=== PATIENT | female | born 1985 | race Caucasian/White ===

== ENCOUNTER 2016-07-10 19:53 | Emergency (ER) | payer MEDICARE, OTHER ==
[2016-07-10 20:03] VITALS: TEMP 98
[2016-07-10 21:06] LABS: Appearance,Urine Clear (Clear); Bilirubin,Urine Negative (Negative); Glucose,Urine (UA) Negative (Negative); Ketones,Urine Negative (Negative); Leukocyte Esterase,Urine Negative (Negative); Nitrite,Urine Negative (Negative); Protein,Urine Negative (Negative); UA Billing (MACRO vs. MICRO) CHEM; Urobilinogen,Urine <2.0 mg/dL (<2.0)
[2016-07-10 21:08] LABS: Basophils # (A) 0.1 k/uL (0-0.2); Basophils % (A) 1 %; CH 31.1; CHCM 35.2; Eosinophils # (A) 0.1 k/uL (0-0.7); Eosinophils % (A) 2 %; HDW 2.34; HGB 12.8 gm/dL (11.4-16.0); Luc # (Auto) 0.23; Luc % (Auto) 3; Lymphocytes # (A) 2.4 k/uL (1.0-4.8); Lymphocytes % (A) 29 %; MCH 30.5 pg (25.0-35.0); MCHC 34.5 g/dL (31.0-37.0); MCV 88.6 fL (80.0-100.0); Mean Platelet Volume 8.4; Monocytes # (A) 0.5 k/uL (0-1.0); Monocytes % (A) 6 %; Neutrophils # (A) 4.9 k/uL (1.3-7.7); Neutrophils % (A) 60 %; RBC 4.18 m/uL (3.80-5.40); RDW 12.1 % (11.5-15.5); WBC 8.2 k/uL (3.8-10.6); WBC (Perox) 8.86
--- NOTE | 2016-07-10 22:07 | ED ---
General Adult HPI - General Chief complaint: Abdominal Pain Stated complaint: rt side pain ( early ) Time Seen by Provider: 07/10/16 20:25 Source: patient, RN notes reviewed Mode of arrival: ambulatory Limitations: no limitations - History of Present Illness Initial comments: Patient is a 31-year-old female with chief complaint of right lower quadrant pain. She states that she's had a cramping pain for the past 3 days. She states that she found she was approximately 2 weeks ago. She denies any vaginal spotting or discharge. She denies any dysuria or hematuria. Patient reports no nausea or vomiting or other areas of abdominal pain. She reports her pain is currently a 410. She denies any history of fever or chills. This is her fourth . Patient denies any complications with pregnacy, she plans to see OBGYN in [place]. - Related Data Home Medications Medication Instructions Recorded Confirmed Divalproex [Depakote] 750 mg PO HS 07/10/16 07/10/16 Folic Acid 1 mg PO DAILY 07/10/16 07/10/16 levETIRAcetam [Keppra] 500 mg PO Q12HR 07/10/16 07/10/16 Previous Rx's Medication Instructions Recorded Yhg-Skbk-Klzun Acid 1 cap PO DAILY #30 cap 07/10/16 [-U Capsule (formulary)] Allergies Allergy/AdvReac Type Severity Reaction Status Date / Time acetaminophen Allergy Mild Itching Verified 07/10/16 20:16 [From Tylenol-Codeine #3] codeine phosphate Allergy Mild Itching Verified 07/10/16 20:16 [From Tylenol-Codeine #3] lorazepam [From Ativan] Allergy Unknown Verified 07/10/16 20:16 tramadol Allergy Anxiety Verified 07/10/16 20:16 Review of Systems ROS Statement: Those systems with pertinent positive or pertinent negative responses have been documented in the HPI. ROS Other: All systems not noted in ROS Statement are negative. Past Medical History Past Medical History: Seizure Disorder Additional Past Medical History / Comment(s): post depression epilepsy History of Any Multi-Drug Resistant Organisms: MRSA Date of last positivie culture/infection: 2012 MDRO Source:: stomach wound Past Surgical History: Adenoidectomy, Orthopedic Surgery Additional Past Surgical History / Comment(s): brain surgery, eye surgery Past Psychological History: Depression Smoking Status: Never smoker Past Alcohol Use History: None Reported Past Drug Use History: None Reported General Exam Limitations: no limitations General appearance: alert, in no apparent distress Head exam: Present: atraumatic, normocephalic, normal inspection Eye exam: Present: normal appearance, PERRL, EOMI. Absent: scleral icterus, conjunctival injection, periorbital swelling ENT exam: Present: normal exam, mucous membranes moist Neck exam: Present: normal inspection. Absent: tenderness, meningismus, lymphadenopathy Respiratory exam: Present: normal lung sounds bilaterally. Absent: respiratory distress, wheezes, rales, rhonchi, stridor Cardiovascular Exam: Present: regular rate, normal rhythm, normal heart sounds. Absent: systolic murmur, diastolic murmur, rubs, gallop, clicks GI/Abdominal exam: Present: soft, normal bowel sounds. Absent: distended, tenderness, guarding, rebound, rigid Extremities exam: Present: normal inspection, full ROM, normal capillary refill. Absent: tenderness, pedal edema, joint swelling, calf tenderness Back exam: Present: normal inspection Neurological exam: Present: alert, oriented X3, CN II-XII intact Psychiatric exam: Present: normal affect, normal mood Skin exam: Present: warm Course Vital Signs 07/10/16 07/10/16 19:58 23:28 Temperature 98.0 F Pulse Rate 84 76 Respiratory 20 16 Rate Blood Pressure 129/62 120/70 O2 Sat by Pulse 100 98 Oximetry Medical Decision Making - Medical Decision Making Patient is a 31-year-old female. She is presenting with 2 days of right lower quadrant abdominal pain. Labwork obtained, no elevated WBC. Serum norah hcg 112, 450, and patient is O Positive. Patient transvaginal US shows live IUP measuring 8 weeks, no signs of demise. MARIANA 01/19/2017. I discussed that the cramping is likely a normal variant in early and discussed follow up with OBGYN. I discussed return parameters and to use tyelnol for pain. Patient agrees. Patient understands treatment plan and will comply. - Lab Data Result diagrams: 07/10/16 20:55 Lab Results 07/10/16 07/10/16 07/10/16 Range/Units 20:55 20:55 20:55 WBC 8.2 (3.8-10.6) k/uL RBC 4.18 (3.80-5.40) m/uL Hgb 12.8 (11.4-16.0) gm/dL Hct 37.0 (34.0-46.0) % MCV 88.6 (80.0-100.0) fL MCH 30.5 (25.0-35.0) pg MCHC 34.5 (31.0-37.0) g/dL RDW 12.1 (11.5-15.5) % Plt Count 164 (150-450) k/uL Neutrophils % 60 % Lymphocytes % 29 % Monocytes % 6 % Eosinophils % 2 % Basophils % 1 % Neutrophils # 4.9 (1.3-7.7) k/uL Lymphocytes # 2.4 (1.0-4.8) k/uL Monocytes # 0.5 (0-1.0) k/uL Eosinophils # 0.1 (0-0.7) k/uL Basophils # 0.1 (0-0.2) k/uL HCG, Quant 548122.0 mIU/mL Urine Color Urine Appearance (Clear) Urine pH (5.0-8.0) Ur Specific [place] (1.001-1.035) Urine Protein (Negative) Urine Glucose (UA) (Negative) Urine Ketones (Negative) Urine Blood (Negative) Urine Nitrite (Negative) Urine Bilirubin (Negative) Urine Urobilinogen (<2.0) mg/dL Ur Leukocyte Esterase (Negative) Trichomonas Ag (Rapid) (Negative) Blood Type O Positive Blood Type Recheck No 07/10/16 07/10/16 Range/Units 20:55 22:00 WBC (3.8-10.6) k/uL RBC (3.80-5.40) m/uL Hgb (11.4-16.0) gm/dL Hct (34.0-46.0) % MCV (80.0-100.0) fL MCH (25.0-35.0) pg MCHC (31.0-37.0) g/dL RDW (11.5-15.5) % Plt Count (150-450) k/uL Neutrophils % % Lymphocytes % % Monocytes % % Eosinophils % % Basophils % % Neutrophils # (1.3-7.7) k/uL Lymphocytes # (1.0-4.8) k/uL Monocytes # (0-1.0) k/uL Eosinophils # (0-0.7) k/uL Basophils # (0-0.2) k/uL HCG, Quant mIU/mL Urine Color Yellow Urine Appearance Clear (Clear) Urine pH 6.0 (5.0-8.0) Ur Specific [place] 1.020 (1.001-1.035) Urine Protein Negative (Negative) Urine Glucose (UA) Negative (Negative) Urine Ketones Negative (Negative) Urine Blood Negative (Negative) Urine Nitrite Negative (Negative) Urine Bilirubin Negative (Negative) Urine Urobilinogen <2.0 (<2.0) mg/dL Ur Leukocyte Esterase Negative (Negative) Trichomonas Ag (Rapid) Negative (Negative) Blood Type Blood Type Recheck - Radiology Data Radiology results: report reviewed Transvaginal US shows living IUP measuring 8 weeks, MARIANA 02/15/2017. No signs of ectopic or adnexal abnormalities. Disposition Clinical Impression: Abdominal cramping affecting Disposition: HOME SELF-CARE Condition: Good Instructions: Abdominal Pain in (ED) Additional Instructions: Patient advised to follow up with [facility]. Take Tylenol for the pain. Return to emergency department if any alarming signs or symptoms occur. Prescriptions: Eph-Efvp-Ttgok Acid [-U Capsule (formulary)] 1 cap PO DAILY # 30 cap Referrals: Damien Simpson MD [Primary Care Provider] - 1-2 days Time of Disposition: 23:13
--- NOTE | 2016-07-10 22:57 | US ---
EXAMINATION TYPE: US OB <= 14 wk fetus DATE OF EXAM: 07/10/2016 10:27 PM COMPARISON: NONE CLINICAL HISTORY: pain. EC patient with RLQ pain x 2 days; ; patient stated was taking seizure me dication EXAM PERFORMED: Transabdominal (TA) EXAM MEASUREMENTS: GESTATIONAL AGE / DATING Physician Established: not established Dates by LMP: ( 9 weeks/3 days) EDC: 02/09/2017 Dates by First Scan: today Dates by Current Scan for: ( 8 weeks/4 days) EDC: 02/15/2017 MATERNAL ANATOMY Uterus: 9.4 x 6.6 x 6.0cm Right Ovary: 2.8 x 2.4 x 1.8cm; ovarian cyst = 1.7 x 1.2 x 1.1cm Left Ovary: 2.7 x 3.1 x 2.1cm Post CDS / Adnexa: peristalsing bowel was noted surrounding right ovary Presence of free fluid: no Presence of corpus luteal cyst: not identified by ring of color flow Presence of subchorionic bleed: no GESTATION / SURVEY CRL: 2.0cm (8 weeks/4 days) Yolk Sac (normal less than 6mm): 4.3mm Heart Rate: 175 bpm Rhythm: Normal IUP: Viable IUP Date of LMP: 05/05/2016 Beta HcG (if available): 112,450.0 Single, live, IUP, 8 weeks/4 days, EDC: 02/15/2017; HR 175bpm. IMPRESSION: Ultrasound gestational age is 8 weeks 4 days. I see no complicating process.
[2016-07-10 23:29] VITALS: BP 120/70; PULSE 76; RESP 16
[2016-07-13 09:59] LABS: Chlamydia/GC Source Vaginal
== END 2016-07-10 23:29 | disposition home or self-care (01) ==
LOC: EC 19:53
DX: O26.891 Other specified pregnancy related conditions, first trimester (principal); R10.31 Right lower quadrant pain; O99.351 Diseases of the nervous system complicating pregnancy, first trimester; G40.909 Epilepsy, unspecified, not intractable, without status epilepticus; Z3A.08 8 weeks gestation of pregnancy; Z79.899 Other long term (current) drug therapy; Z88.5 Allergy status to narcotic agent; Z88.6 Allergy status to analgesic agent; Z88.8 Allergy status to other drugs, medicaments and biological substances
CPT/HCPCS: 36415; 76801; 81003; 84702; 85025; 86900; 86901; 87070; 87205; 87491; 87591; 87808; 99284

== ENCOUNTER → 2018-02-22 | Outpatient (CLI) | payer MEDICARE, OTHER ==
--- NOTE | 2018-02-22 11:48 | ECHOS ---
STRESS ECHOCARDIOGRAM DATE OF SERVICE: 02/22/2018 INDICATIONS: Chest pain. MEDICATIONS: BASELINE HEART RATE: 83 BASELINE BLOOD PRESSURE: 101/67 MAXIMUM HEART RATE: 169 MAXIMUM BLOOD PRESSURE: 191/93 85% MPHR: 158 100% MPHR: 186 METS: 9 MAXIMUM STAGE REACHED: II TOTAL EXERCISE TIME: 8 minutes CLINICAL INFORMATION: Baseline EKG shows sinus rhythm with normal axis, normal intervals. Patient exercised on Randy protocol for a total of 8 minutes achieving 9 METs, 90% of predicted maximal heart rate without chest pain or diagnostic ST-segment depression. Baseline echo shows normal left ventricular size, wall motion and systolic function. Postexercise, there is normal hyperdynamic response of all segments of myocardium noted. CONCLUSIONS: 1. Good exercise tolerance. 2. Negative stress test by EKG criteria. 3. Negative stress echo. MMODL / IJN: [id number] /
== END | disposition home or self-care (01) ==
LOC: RADNMMAIN 09:55
PROVIDERS: ATTEND Internal Medicine
DX: R07.9 Chest pain, unspecified (principal)
CPT/HCPCS: 93351

== ENCOUNTER 2018-10-02 15:33 | Emergency (ER) | payer MEDICARE, OTHER ==
[2018-10-02 15:42] VITALS: RESP 18
--- NOTE | 2018-10-02 16:35 | ED ---
Extremity Problem HPI - General Chief complaint: Extremity Problem,Nontraumatic Stated complaint: Shoulder pain Time Seen by Provider: 10/02/18 15:52 Source: patient Mode of arrival: ambulatory Limitations: no limitations - History of Present Illness Initial comments: Patient is a 33-year-old male presents emergency Department with left shoulder pain. Patient reports at chronic left shoulder pain that radiates along the left-sided trapezius. Patient reports working a physically demanding job requires a lot of lifting. Patient reports the pain is constant and dull and is alleviated with rest and exacerbated with movement. Patient reports the pain is worse throughout the week while she is a work and subsides over the weekend because she is not working. Patient denies taking medications alleviated the pain. Patient denies any numbness tingling, nausea, vomiting, headache chest pain or chest tightness. Patient also reports recent increase in urinary frequency but denies urgency, dysuria or obstructive symptoms. Patient denies hematuria, hematochezia or melena. - Related Data Home Medications Medication Instructions Recorded Confirmed No Known Home Medications 10/02/18 10/02/18 Allergies Allergy/AdvReac Type Severity Reaction Status Date / Time acetaminophen Allergy Mild Itching Verified 10/02/18 16:58 [From Tylenol-Codeine #3] codeine phosphate Allergy Mild Itching Verified 10/02/18 16:58 [From Tylenol-Codeine #3] lorazepam [From Ativan] Allergy Unknown Verified 10/02/18 16:58 tramadol Allergy Anxiety Verified 10/02/18 16:58 Review of Systems ROS Statement: Those systems with pertinent positive or pertinent negative responses have been documented in the HPI. ROS Other: All systems not noted in ROS Statement are negative. Past Medical History Past Medical History: Seizure Disorder Additional Past Medical History / Comment(s): borderline personality History of Any Multi-Drug Resistant Organisms: MRSA Date of last positivie culture/infection: 2012 MDRO Source:: stomach wound Past Surgical History: Adenoidectomy, Orthopedic Surgery Additional Past Surgical History / Comment(s): brain surgery, eye surgery Past Psychological History: Depression Smoking Status: Never smoker Past Alcohol Use History: None Reported Past Drug Use History: None Reported General Exam Limitations: no limitations General appearance: alert, in no apparent distress Head exam: Present: atraumatic, normocephalic, normal inspection Eye exam: Present: normal appearance, PERRL, EOMI Pupils: Present: normal accommodation ENT exam: Present: normal exam, mucous membranes moist Neck exam: Present: normal inspection, tenderness (Mild tenderness with neck flexion and right rotation), full ROM. Absent: lymphadenopathy Respiratory exam: Present: normal lung sounds bilaterally Cardiovascular Exam: Present: regular rate, normal rhythm, normal heart sounds Extremities exam: Present: normal inspection, full ROM, tenderness (Tenderness on left shoulder with abduction above 90 and extension. Negative empty can test, negative Samuels) Back exam: Present: normal inspection, full ROM Neurological exam: Present: alert, oriented X3 Psychiatric exam: Present: normal affect, normal mood Skin exam: Present: warm, intact, normal color Course Vital Signs 10/02/18 10/02/18 15:38 17:57 Temperature 98.3 F 98.2 F Pulse Rate 79 80 Respiratory 18 18 Rate Blood Pressure 120/74 119/81 O2 Sat by Pulse 99 100 Oximetry Medical Decision Making - Medical Decision Making Patient is a 33-year-old female presents emergency Department with left shoulder pain. X-ray of the left shoulder is negative for acute dislocation or fracture. UA is negative for UTI. At this point based on physical examination suspect the patient to have muscle strain along trapezius and shoulder due to extraneous physical activity. Patient advised to follow shoulder exercises and follow-up with physical therapy. Patient advised to alternate between Tylenol and ibuprofen for pain control. Patient advised to follow-up with orthopedics as well. Patient advised to return to emergency department if signs worsen. Case discussed with physician. - Lab Data Lab Results 10/02/18 Range/Units 16:20 Urine Color Yellow Urine Appearance Clear (Clear) Urine pH 5.5 (5.0-8.0) Ur Specific [place] 1.026 (1.001-1.035) Urine Protein Trace H (Negative) Urine Glucose (UA) Negative (Negative) Urine Ketones Negative (Negative) Urine Blood Negative (Negative) Urine Nitrite Negative (Negative) Urine Bilirubin Negative (Negative) Urine Urobilinogen <2.0 (<2.0) mg/dL Ur Leukocyte Esterase Trace H (Negative) Urine RBC 1 (0-5) /hpf Urine WBC 6 H (0-5) /hpf Ur Squamous Epith Cells 5 H (0-4) /hpf Urine Mucus Many H (None) /hpf Disposition Clinical Impression: Shoulder pain, left Disposition: HOME SELF-CARE Condition: Stable Instructions (If sedation given, give patient instructions): Exercises for Internal and External Shoulder Rotation (ED), Exercises for Shoulder Abduction and Adduction (ED), Exercise Safety (ED) Additional Instructions: Please alternate between Tylenol and ibuprofen for pain control. Please follow with primary care. Please return to emergency department if symptoms worsen. Is patient prescribed a controlled substance at d/c from ED?: No Referrals: Damien Simpson MD [Primary Care Provider] - 1-2 days Time of Disposition: 17:21
[2018-10-02 16:37] LABS: Appearance,Urine Clear (Clear); Bilirubin,Urine Negative (Negative); Blood,Urine Negative (Negative); Color,Urine Yellow; Glucose,Urine (UA) Negative (Negative); Ketones,Urine Negative (Negative); Leukocyte Esterase,Urine Trace (Negative); Mucus,Urine Many /hpf; Nitrite,Urine Negative (Negative); PH, Urine 5.5 (5.0-8.0); Protein,Urine Trace (Negative); RBC,Urine 1 /hpf (0-5); Specific Gravity,Urine 1.026 (1.001-1.035); Squamous Epithelial Cell,Urine 5 /hpf (0-4); Urobilinogen,Urine <2.0 mg/dL (<2.0); WBC,Urine 6 /hpf (0-5)
--- NOTE | 2018-10-02 16:47 | XR ---
EXAMINATION TYPE: XR shoulder complete LT DATE OF EXAM: 10/02/2018 CLINICAL HISTORY: Left shoulder pain. TECHNIQUE: Three views of the left shoulder are obtained. COMPARISON: Left shoulder x-ray April 01, 2015. FINDINGS: There is no acute fracture/dislocation evident in the left shoulder. The acromioclavicula r and glenohumeral joint spaces appear within normal limits. Distal acromion morphology is unremarka ble. The visualized ribs are intact and unremarkable. IMPRESSION: Unremarkable study. No significant change from prior.
[2018-10-02 17:57] VITALS: BP 119/81; PULSE 80; TEMP 98.2
== END 2018-10-02 17:56 | disposition home or self-care (01) ==
LOC: EC 15:33
DX: M25.512 Pain in left shoulder (principal); Z86.14 Personal history of Methicillin resistant Staphylococcus aureus infection; Z88.6 Allergy status to analgesic agent; Z88.5 Allergy status to narcotic agent; Z88.8 Allergy status to other drugs, medicaments and biological substances
CPT/HCPCS: 81001; 99283

== ENCOUNTER → 2018-10-13 | Outpatient (CLI) | payer OTHER ==
[2018-10-13 10:41] LABS: Appearance,Urine Clear (Clear); Bilirubin,Urine Negative (Negative); Blood,Urine Negative (Negative); Color,Urine Yellow; Glucose,Urine (UA) Negative (Negative); Ketones,Urine Negative (Negative); Leukocyte Esterase,Urine Negative (Negative); Nitrite,Urine Negative (Negative); PH, Urine 5.5 (5.0-8.0); Protein,Urine Negative (Negative); Urobilinogen,Urine <2.0 mg/dL (<2.0)
[2018-10-13 10:46] LABS: HCT 41.6 % (34.0-46.0); HGB 13.6 gm/dL (11.4-16.0); MCH 28.3 pg (25.0-35.0); MCHC 32.7 g/dL (31.0-37.0); MCV 86.6 fL (80.0-100.0); Mean Platelet Volume 7.4; Platelet Count 295 k/uL (150-450); RBC 4.81 m/uL (3.80-5.40); WBC 9.5 k/uL (3.8-10.6)
[2018-10-13 16:39] LABS: ALT 20 U/L (8-44); AST 21 U/L (13-35); African American GFR (CKD) 110.7 (60.0-200.0); Albumin/Globulin Ratio 1.71 (1.60-3.17); Alkaline Phosphatase 68 U/L (41-126); Calcium 9.3 mg/dL (8.7-10.3); Carbon Dioxide 25.2 mmol/L (21.6-31.8); Chloride 108 mmol/L (96-109); Globulin 2.4 g/dL (1.6-3.3); Glucose 88 mg/dL (70-110); Potassium 4.5 mmol/L (3.5-5.5); Sodium 140 mmol/L (135-145); Total Bilirubin 0.4 mg/dL (0.3-1.2); Total Protein 6.5 g/dL (6.2-8.2)
[2018-10-13 16:55] LABS: HCG,Quantitative Serum <2.0 mIU/mL
== END | disposition home or self-care (01) ==
LOC: LABWHC1 10:03
PROVIDERS: ATTEND Internal Medicine
DX: R56.9 Unspecified convulsions (principal); F31.9 Bipolar disorder, unspecified; R35.0 Frequency of micturition
CPT/HCPCS: 36415; 80053; 81003; 84443; 84702; 85027; 87086

== ENCOUNTER 2018-11-10 11:38 | Emergency (ER) | payer OTHER ==
[2018-11-10 11:43] VITALS: BP 105/70; PULSE 87; RESP 20; TEMP 98
--- NOTE | 2018-11-10 13:35 | ED ---
Psych HPI - General Chief Complaint: Psychiatric Symptoms Stated Complaint: EPS eval Time Seen by Provider: 11/10/18 11:45 Source: patient, RN notes reviewed, old records reviewed Mode of arrival: ambulatory - History of Present Illness Initial Comments: This is a 33-year-old female the ER for evaluation of psychiatric illness. Patient is actively cutting himself actively depressed and suicidal thoughts. Patient denying any recent drug or alcohol abuse. MD Complaint: suicidal ideation, feels depressed -: unknown Associated Psychiatric Symptoms: depression, suicidal ideation History of same: Yes Quality: intermittent, getting worse Improves With: none Worsens With: none Associated Symptoms: denies other symptoms Treatments Prior to Arrival: placed on mental health hold If Self Harm: admits thoughts of self harm - Related Data Home Medications Medication Instructions Recorded Confirmed Fluticasone Nasal Nelson [Flonase 1 spr EA NOSTRIL DAILY PRN 11/10/18 11/10/18 Nasal Nelson] Norgestimate-Ethinyl Estradiol 1 tab PO HS 11/10/18 11/10/18 [Sprintec 28 Day Tablet] Sertraline [Zoloft] 50 mg PO HS 11/10/18 11/10/18 Allergies Allergy/AdvReac Type Severity Reaction Status Date / Time acetaminophen Allergy Mild Itching Verified 11/10/18 12:17 [From Tylenol-Codeine #3] codeine phosphate Allergy Mild Itching Verified 11/10/18 12:17 [From Tylenol-Codeine #3] lorazepam [From Ativan] Allergy Unknown Verified 11/10/18 12:17 tramadol AdvReac Anxiety Verified 11/10/18 12:17 Review of Systems ROS Statement: Those systems with pertinent positive or pertinent negative responses have been documented in the HPI. ROS Other: All systems not noted in ROS Statement are negative. Past Medical History Past Medical History: Seizure Disorder Additional Past Medical History / Comment(s): borderline personality History of Any Multi-Drug Resistant Organisms: MRSA Date of last positivie culture/infection: 2012 MDRO Source:: stomach wound Past Surgical History: Adenoidectomy, Orthopedic Surgery Additional Past Surgical History / Comment(s): brain surgery, eye surgery Past Psychological History: Depression Smoking Status: Never smoker Past Alcohol Use History: None Reported Past Drug Use History: None Reported General Exam Limitations: no limitations General appearance: alert, in no apparent distress Head exam: Present: atraumatic, normocephalic, normal inspection Eye exam: Present: normal appearance, PERRL, EOMI. Absent: scleral icterus, conjunctival injection, periorbital swelling ENT exam: Present: normal exam, mucous membranes moist Neck exam: Present: normal inspection. Absent: tenderness, meningismus, lymphadenopathy Respiratory exam: Present: normal lung sounds bilaterally. Absent: respiratory distress, wheezes, rales, rhonchi, stridor Cardiovascular Exam: Present: regular rate, normal rhythm, normal heart sounds. Absent: systolic murmur, diastolic murmur, rubs, gallop, clicks GI/Abdominal exam: Present: soft, normal bowel sounds. Absent: distended, tenderness, guarding, rebound, rigid Extremities exam: Present: normal inspection, full ROM, normal capillary refill. Absent: tenderness, pedal edema, joint swelling, calf tenderness Back exam: Present: normal inspection Neurological exam: Present: alert, oriented X3, CN II-XII intact Psychiatric exam: Present: normal affect, normal mood Skin exam: Present: warm, dry, intact, normal color. Absent: rash Course Vital Signs 11/10/18 11:41 Temperature 98.0 F Pulse Rate 87 Respiratory 20 Rate Blood Pressure 105/70 O2 Sat by Pulse 98 Oximetry - Reevaluation(s) Reevaluation #1: 11/10/18 13:34 Patient's medically clear for psychiatric evaluation Medical Decision Making - Medical Decision Making 33 female the ER for evasive psychiatric treatment. Patient seen evaluated with psychiatry and can be discharged home Disposition Clinical Impression: Depression Disposition: HOME SELF-CARE Condition: Fair Instructions (If sedation given, give patient instructions): Depression (ED) Is patient prescribed a controlled substance at d/c from ED?: No Referrals: Damien Simpson MD [Primary Care Provider] - 1-2 days
== END 2018-11-10 14:16 | disposition home or self-care (01) ==
LOC: EC 11:38
DX: F32.9 Major depressive disorder, single episode, unspecified (principal); R45.851 Suicidal ideations; F60.3 Borderline personality disorder; Z86.14 Personal history of Methicillin resistant Staphylococcus aureus infection; Z79.3 Long term (current) use of hormonal contraceptives; Z79.899 Other long term (current) drug therapy; Z88.5 Allergy status to narcotic agent; Z88.6 Allergy status to analgesic agent; Z88.8 Allergy status to other drugs, medicaments and biological substances
CPT/HCPCS: 82075; 99285

== ENCOUNTER → 2018-12-26 | Outpatient (CLI) | payer OTHER ==
--- NOTE | 2018-12-27 10:42 | NM ---
EXAMINATION TYPE: NM hepatobiliary w CCK DATE OF EXAM: 12/26/2018 COMPARISON: NONE HISTORY: Biliary dyskinesia TECHNIQUE: After the intravenous administration of 5.3 mCi Tc 99m Mebrofenin hepatobiliary scintigrap hy is performed. Immediate images post injection. FINDINGS: There is satisfactory initial accumulation of tracer by the liver. The gallbladder is visualized wit hin 4 minutes. The small bowel activity is noted within 2 minutes. At one hour CCK was administered , patient was injected with 2.2 mcg of Kinevac, and gallbladder ejection fraction is calculated at 97 %, above the upper limit of the normal range. Therefore there is no scintigraphic evidence of cysti c or common bile duct obstruction to suggest acute cholecystitis. IMPRESSION: Possible hyperdynamic gallbladder
== END | disposition home or self-care (01) ==
LOC: RADNMMAIN 14:59
PROVIDERS: ATTEND Surgery
DX: K82.8 Other specified diseases of gallbladder (principal)
CPT/HCPCS: 78227; A9537; J2805

== ENCOUNTER 2019-01-16 06:39 | Day surgery (SDC) | payer OTHER ==
[2019-01-11 15:25] VITALS: BMI 41.5
[~2019-01-16 06:39] MED LIST: DEXAMETHASONE SOD PHOSPHATE 10 MG/ML 1 ML VIAL IV ONE; HEPARIN SODIUM,PORCINE 5,000 UNIT/ML 1 ML VIAL SQ ONE; LIDOCAINE 1% 20 ML VIAL (10MG/ML) FOR IV START INTRADERMA PRN; ONDANSETRON 4 MG/2 ML VIAL IVP ONE; SCOPOLAMINE 1.5MG/72HR PATCH TRANSDERM ONE
[2019-01-16] MEDS: LACTATED RINGERS 1,000 ML IV SCH ×2 (07:15→07:53)
[2019-01-16] MEDS ORDERED: NEOSTIGMINE 1 MG/ML 10 ML VIAL ONE (07:48)
[2019-01-16] MEDS ORDERED: HYDROmorphone (PF) 1 MG/ML ONE (07:48)
[2019-01-16] MEDS ORDERED: fentaNYL (PF) 50 MCG/ML 2 ML AMP ONE (07:48)
[2019-01-16] MEDS ORDERED: GLYCOPYRROLATE 0.2 MG/ML 2 ML VIAL ONE (07:48)
[2019-01-16] MEDS ORDERED: PROPOFOL 10 MG/ML 20 ML VIAL IV ONE (07:48)
[2019-01-16] MEDS ORDERED: SUCCINYLCHOLINE CHLORIDE 100 MG/5 ML SYR IV ONE (07:48)
[2019-01-16] MEDS ORDERED: KETOROLAC 30 MG/ML 1 ML VIAL ONE (07:48)
[2019-01-16] MEDS ORDERED: ROCURONIUM BROMIDE 10 MG/ML 10 ML VIAL IV ONE (07:48)
[2019-01-16] MEDS ORDERED: LIDOCAINE 1% INJ 10MG/ML (20 ML MDV) ONE (07:48)
[2019-01-16] MEDS ORDERED: MIDAZOLAM 2 MG/2 ML VIAL ONE (07:48)
--- NOTE | 2019-01-16 07:57 | P.GSHP ---
History of Present Illness H&P Date: 01/16/19 Chief Complaint: Right upper quadrant pain This a 33-year-old female who presents today for laparoscopic cholecystectomy. Patient's had complaints of right upper quadrant pain. Her HIDA scan shows a hyperdynamic gallbladder consistent with biliary hyperkinesia Past Medical History Past Medical History: GERD/Reflux, Seizure Disorder Additional Past Medical History / Comment(s): abdominal pain,last seizure approx Feb 2014,migraines History of Any Multi-Drug Resistant Organisms: MRSA Date of last positivie culture/infection: 2012 MDRO Source:: stomach wound Past Surgical History: Adenoidectomy, Orthopedic Surgery Additional Past Surgical History / Comment(s): brain surgery tx of seizures, eye surgery Past Anesthesia/Blood Transfusion Reactions: No Reported Reaction Additional Past Anesthesia/Blood Transfusion Reaction / Comment(s): no hx blood transfusion Smoking Status: Former smoker - Past Family History Mother Family Medical History: No Reported History Father Brother(s) Family Medical History: Cancer Additional Family Medical History / Comment(s): bladder Medications and Allergies Home Medications Medication Instructions Recorded Confirmed Type Norgestimate-Ethinyl Estradiol 1 tab PO HS 11/10/18 01/16/19 History [Sprintec 28 Day Tablet] Esomeprazole Magnesium [NexIUM] 20 mg PO QAM 01/11/19 01/16/19 History SUMAtriptan SUCCINATE [Imitrex] 50 mg PO DAILY PRN 01/11/19 01/16/19 History Allergies Allergy/AdvReac Type Severity Reaction Status Date / Time codeine phosphate Allergy Mild Itching Verified 01/16/19 07:19 [From Tylenol-Codeine #3] lorazepam [From Ativan] Allergy agitation Verified 01/16/19 07:19 and doesn't remember tramadol AdvReac paranoid Verified 01/16/19 07:19 Surgical - Exam Vital Signs Temp Pulse Resp BP Pulse Ox 97.8 F 80 16 105/82 98 01/16/19 07:07 01/16/19 07:07 01/16/19 07:07 01/16/19 07:07 01/16/19 07:07 - General well developed, well nourished, no distress - Eyes PERRL - ENT normal pinna - Neck no masses - Respiratory normal expansion - Cardiovascular Rhythm: regular - Abdomen Abdomen: soft, non tender Assessment and Plan Assessment: Right upper quadrant pain Abnormal HIDA scan Laparoscopic cholecystectomy
[2019-01-16] MEDS ORDERED: BUPIVACAINE (PF) 0.25% 30 ML VIAL SQ ONE (08:18)
[2019-01-16 09:02] VITALS: TEMP 96.8
[2019-01-16] MEDS: fentaNYL (PF) 50 MCG/ML 2 ML AMP IV PRN ×2 (09:05→09:25)
[2019-01-16] MEDS ORDERED: HYDROcodone/APAP 5-325MG 1 EACH TAB PO ONE (09:52)
[2019-01-16] MEDS ORDERED: HYDROmorphone 1 MG/ML 1 ML SYRINGE IVP ONE (10:57)
[2019-01-16 11:10] VITALS: BP 111/65; PULSE 68; RESP 16
--- NOTE | 2019-01-20 08:58 | P.OP ---
Date of Procedure: 01/16/19 Preoperative Diagnosis: Cholecystitis Postoperative Diagnosis: Cholecystitis Procedure(s) Performed: Laparoscopic cholecystectomy Anesthesia: MAISHA Surgeon: Orlin aWshington Pathology: other (Gallbladder) Condition: stable Disposition: PACU Description of Procedure: The patient was placed on the operating table. The patient received a general endotracheal tube anesthesia. The patients abdomen was prepped and draped in the usual sterile fashion. Through an infraumbilical stab incision, the fascia of the anterior abdominal wall was grasped with a pair of Kochers and then the Veress needle was placed in the peritoneal cavity. Position of the Veress needle was confirmed with positive drop test. The abdomen was then insufflated. After adequate insufflation, the 10 mm trocar was placed in the peritoneal cavity. Following this the laparoscope was placed in the peritoneal cavity. The patient was placed in the head-up, right side up position and then a 5 mm trocar was placed in the right lateral and right subcostal position under direct visualization. A 8 mm trocar was placed in the epigastric position. The gallbladder was grasped in the fundus and infundibulum. Traction on the gallbladder was placed in the lateral and the cephalad positions. The triangle of Calot was visualized.. The cystic duct was bluntly dissected until the union of the cystic duct and common bile duct was seen. A critical view of safety was achieved. The cystic duct was then divided and sealed with the Harmonic scissors. A PDS Endoloop was then placed throughout the cystic duct stump. The cystic artery divided and sealed with the Harmonic scissors. The gallbladder was then removed from the liver bed using Harmonic scissors. The gallbladder was then extracted through the epigastric port site. Operative field was checked for any bleeding spots and Harmonic scissors was used to coagulate the liver bed. The abdomen was irrigated. The trocars were removed. The skin was closed using interrupted 3-0 Vicryl suture. Dermabond dressing were applied. The patient tolerated the procedure well.
== END 2019-01-16 12:00 | disposition home or self-care (01) ==
LOC: OR 06:39
PROVIDERS: ATTEND Surgery
DX: K81.1 Chronic cholecystitis (principal); K21.9 Gastro-esophageal reflux disease without esophagitis; E66.9 Obesity, unspecified; Z68.41 Body mass index [BMI] 40.0-44.9, adult; G43.909 Migraine, unspecified, not intractable, without status migrainosus; Z86.14 Personal history of Methicillin resistant Staphylococcus aureus infection; Z87.891 Personal history of nicotine dependence; Z79.3 Long term (current) use of hormonal contraceptives; Z79.899 Other long term (current) drug therapy; Z88.5 Allergy status to narcotic agent; Z88.8 Allergy status to other drugs, medicaments and biological substances
CPT/HCPCS: 81025; 88304; 47562; J2250; J1644; J1100; J2710; J0690; J2405; J2001; J3010; J1885; J1170; J0330; J2704

== ENCOUNTER 2019-03-26 19:19 | Emergency (ER) | payer OTHER ==
[2019-03-26 19:22] VITALS: BP 136/86; PULSE 85; RESP 20; TEMP 98
[2019-03-26] MEDS ORDERED: KETOROLAC 30 MG/ML 1 ML VIAL IM STA (19:48)
[2019-03-26] MEDS ORDERED: PROCHLORPERAZINE 10 MG TAB PO STA (19:48)
[2019-03-26] MEDS ORDERED: diphenhydrAMINE 50 MG CAP PO STA (19:48)
--- NOTE | 2019-03-26 20:40 | ED ---
Headache HPI - General Chief Complaint: Headache Stated Complaint: VILLAR Time Seen by Provider: 03/26/19 19:25 Mode of arrival: ambulatory Limitations: no limitations - History of Present Illness Initial Comments: Patient complains of a headache. She has a history of migraine headaches. Nothing makes her headache better or worse this time. Her headache came on gradually. This is not the worse headache of her life. She has no nausea or vomiting or diaphoresis. She has no weakness. She has no lightheadedness or dizziness. She has no neck pain or stiffness. She has no fever or chills. - Related Data Home Medications Medication Instructions Recorded Confirmed Norgestimate-Ethinyl Estradiol 1 tab PO HS 11/10/18 01/16/19 [Sprintec 28 Day Tablet] Esomeprazole Magnesium [NexIUM] 20 mg PO QAM 01/11/19 01/16/19 SUMAtriptan SUCCINATE [Imitrex] 50 mg PO DAILY PRN 01/11/19 01/16/19 Previous Rx's Medication Instructions Recorded Docusate [Colace] 100 mg PO BID #20 capsule 01/16/19 HYDROcodone/APAP 5-325MG [[place] 1 tab PO Q6HR PRN #10 tab 01/16/19 5-325] SUMAtriptan SUCCINATE [Sumatriptan 4 mg SQ DAILY PRN #30 ml 03/26/19 Succinate] Allergies Allergy/AdvReac Type Severity Reaction Status Date / Time codeine phosphate Allergy Mild Itching Verified 03/26/19 19:23 [From Tylenol-Codeine #3] lorazepam [From Ativan] Allergy agitation Verified 03/26/19 19:23 and doesn't remember tramadol AdvReac paranoid Verified 03/26/19 19:23 Review of Systems ROS Statement: Those systems with pertinent positive or pertinent negative responses have been documented in the HPI. ROS Other: All systems not noted in ROS Statement are negative. Past Medical History Past Medical History: GERD/Reflux, Seizure Disorder Additional Past Medical History / Comment(s): abdominal pain,last seizure approx Feb 2014,migraines History of Any Multi-Drug Resistant Organisms: MRSA Date of last positivie culture/infection: 2012 MDRO Source:: stomach wound Past Surgical History: Adenoidectomy, Cholecystectomy, Orthopedic Surgery Additional Past Surgical History / Comment(s): brain surgery tx of seizures, eye surgery Past Anesthesia/Blood Transfusion Reactions: No Reported Reaction Additional Past Anesthesia/Blood Transfusion Reaction / Comment(s): no hx blood transfusion Past Psychological History: Bipolar, Depression Smoking Status: Former smoker Past Alcohol Use History: None Reported Past Drug Use History: None Reported - Past Family History Mother Family Medical History: No Reported History Father Brother(s) Family Medical History: Cancer Additional Family Medical History / Comment(s): bladder General Exam Limitations: no limitations General appearance: alert, in no apparent distress Head exam: Present: atraumatic, normocephalic, normal inspection Eye exam: Present: normal appearance, PERRL, EOMI. Absent: scleral icterus, conjunctival injection, periorbital swelling ENT exam: Present: normal exam, mucous membranes moist Neck exam: Present: normal inspection. Absent: tenderness, meningismus, lymphadenopathy Respiratory exam: Present: normal lung sounds bilaterally. Absent: respiratory distress, wheezes, rales, rhonchi, stridor Cardiovascular Exam: Present: regular rate, normal rhythm, normal heart sounds. Absent: systolic murmur, diastolic murmur, rubs, gallop, clicks GI/Abdominal exam: Present: soft, normal bowel sounds. Absent: distended, tenderness, guarding, rebound, rigid Extremities exam: Present: normal inspection, full ROM, normal capillary refill. Absent: tenderness, pedal edema, joint swelling, calf tenderness Back exam: Present: normal inspection Neurological exam: Present: alert, oriented X3, CN II-XII intact Psychiatric exam: Present: normal affect, normal mood Skin exam: Present: warm, dry, intact, normal color. Absent: rash Course Vital Signs 03/26/19 19:20 Temperature 98 F Pulse Rate 85 Respiratory 20 Rate Blood Pressure 136/86 O2 Sat by Pulse 100 Oximetry Medical Decision Making - Medical Decision Making Patient presents with headache. I gave her IM Toradol, oral Compazine and Benadryl. I will refill her prescription for Imitrex. She feels better. There is no evidence of infectious process, space-occupying lesion or intracranial bleed. She is stable for discharge. Disposition Clinical Impression: Headache Disposition: HOME SELF-CARE Condition: Good Instructions (If sedation given, give patient instructions): Acute Headache (ED) Prescriptions: SUMAtriptan SUCCINATE [Sumatriptan Succinate] 4 mg SQ DAILY PRN #30 ml PRN Reason: Pain Is patient prescribed a controlled substance at d/c from ED?: No Referrals: Damien Simpson MD [Primary Care Provider] - 1-2 days
== END 2019-03-26 20:59 | disposition home or self-care (01) ==
LOC: EC 19:19
DX: R51 Headache (principal); K21.9 Gastro-esophageal reflux disease without esophagitis; Z79.899 Other long term (current) drug therapy; Z79.3 Long term (current) use of hormonal contraceptives; Z88.5 Allergy status to narcotic agent; Z88.6 Allergy status to analgesic agent; Z88.8 Allergy status to other drugs, medicaments and biological substances; Z87.891 Personal history of nicotine dependence
CPT/HCPCS: 99283; 96372; S0183; J1885

== ENCOUNTER 2020-03-18 12:40 | Emergency (ER) | payer OTHER ==
[2020-03-18 13:01] VITALS: BP 118/79; PULSE 87; RESP 18; TEMP 97.9
[2020-03-18] MEDS ORDERED: diphenhydrAMINE 50 MG CAP PO STA (13:19)
[2020-03-18] MEDS ORDERED: ONDANSETRON ODT 4 MG TAB PO STA (13:19)
[2020-03-18] MEDS ORDERED: KETOROLAC 15 MG/ML 1 ML VIAL IM STA (13:19)
--- NOTE | 2020-03-18 13:22 | ED ---
Headache HPI - General Chief Complaint: Headache Stated Complaint: headache Time Seen by Provider: 03/18/20 13:11 Source: RN notes reviewed Mode of arrival: ambulatory Limitations: no limitations - History of Present Illness Initial Comments: 34-year-old female presents emergency from chief complaint of migraine headache. Patient states this is her typical migraine headache. She has migraines around her mental cycle. Patient denies any blurred vision, focal weakness, weakness in extremities. Patient denies any chest pain or shortness breath no fevers chills no neck pain or neck stiffness. She has some photosensitivity. Patient states she's has slight nausea without vomiting. She only takes Imitrex but she is out of her Imitrex. Patient denies any chance . No abdominal pain. - Related Data Home Medications Medication Instructions Recorded Confirmed Norgestimate-Ethinyl Estradiol 1 tab PO HS 11/10/18 01/16/19 [Sprintec 28 Day Tablet] Esomeprazole Magnesium [NexIUM] 20 mg PO QAM 01/11/19 01/16/19 SUMAtriptan succinate [Imitrex] 50 mg PO DAILY PRN 01/11/19 01/16/19 Previous Rx's Medication Instructions Recorded Docusate [Colace] 100 mg PO BID #20 capsule 01/16/19 HYDROcodone/APAP 5-325MG [[place] 1 tab PO Q6HR PRN #10 tab 01/16/19 5-325] SUMAtriptan succinate [Sumatriptan 4 mg SQ DAILY PRN #30 ml 03/26/19 Succinate] SUMAtriptan succinate [Imitrex] 50 mg PO ONCE PRN #10 tablet 03/18/20 Allergies Allergy/AdvReac Type Severity Reaction Status Date / Time codeine phosphate Allergy Mild Itching Verified 03/18/20 13:02 [From Tylenol-Codeine #3] lorazepam [From Ativan] Allergy agitation Verified 03/18/20 13:02 and doesn't remember tramadol AdvReac paranoid Verified 03/18/20 13:02 Review of Systems ROS Statement: Those systems with pertinent positive or pertinent negative responses have been documented in the HPI. ROS Other: All systems not noted in ROS Statement are negative. Past Medical History Past Medical History: GERD/Reflux, Seizure Disorder Additional Past Medical History / Comment(s): abdominal pain,last seizure approx Feb 2014,migraines History of Any Multi-Drug Resistant Organisms: MRSA Date of last positivie culture/infection: 2012 MDRO Source:: stomach wound Past Surgical History: Adenoidectomy, Cholecystectomy, Orthopedic Surgery Additional Past Surgical History / Comment(s): brain surgery tx of seizures, eye surgery Past Anesthesia/Blood Transfusion Reactions: No Reported Reaction Additional Past Anesthesia/Blood Transfusion Reaction / Comment(s): no hx blood transfusion Past Psychological History: Bipolar, Depression Smoking Status: Never smoker Past Alcohol Use History: None Reported Past Drug Use History: None Reported - Past Family History Mother Family Medical History: No Reported History Father Brother(s) Family Medical History: Cancer Additional Family Medical History / Comment(s): bladder General Exam General appearance: alert, in no apparent distress Head exam: Present: atraumatic, normocephalic, normal inspection Eye exam: Present: normal appearance, PERRL, EOMI. Absent: scleral icterus, conjunctival injection, periorbital swelling ENT exam: Present: normal exam, normal oropharynx, mucous membranes moist, TM's normal bilaterally, normal external ear exam Neck exam: Present: normal inspection, full ROM. Absent: tenderness, meningismus, lymphadenopathy Respiratory exam: Present: normal lung sounds bilaterally. Absent: respiratory distress, wheezes, rales, rhonchi, stridor Cardiovascular Exam: Present: regular rate, normal rhythm, normal heart sounds. Absent: systolic murmur, diastolic murmur, rubs, gallop, clicks GI/Abdominal exam: Present: soft, normal bowel sounds. Absent: distended, tenderness, guarding, rebound, rigid Extremities exam: Present: normal inspection, full ROM, normal capillary refill. Absent: tenderness, pedal edema, joint swelling, calf tenderness Neurological exam: Present: alert, oriented X3, CN II-XII intact, reflexes normal, other (Finger to nose intact bilaterally). Absent: motor sensory deficit Skin exam: Present: warm, dry, intact, normal color. Absent: rash Course Vital Signs 03/18/20 12:58 Temperature 97.9 F Pulse Rate 87 Respiratory 18 Rate Blood Pressure 118/79 O2 Sat by Pulse 97 Oximetry Medical Decision Making - Medical Decision Making Patient has chronic migraine with no acute findings today. Patient offers Toradol Benadryl and Zofran patient agrees to plan patient was discharged with a prescription of Imitrex return parameters discussed. She is neurologically intact. Disposition Clinical Impression: Migraine headache Disposition: HOME SELF-CARE Condition: Stable Instructions (If sedation given, give patient instructions): Acute Headache (ED) Additional Instructions: Please return to the Emergency Department if symptoms worsen or any other concerns. Prescriptions: SUMAtriptan succinate [Imitrex] 50 mg PO ONCE PRN #10 tablet PRN Reason: headache Is patient prescribed a controlled substance at d/c from ED?: No Referrals: Damien Simpson MD [Primary Care Provider] - 1-2 days Time of Disposition: 13:22
== END 2020-03-18 14:05 | disposition home or self-care (01) ==
LOC: EC 12:40
DX: G43.909 Migraine, unspecified, not intractable, without status migrainosus (principal); F31.9 Bipolar disorder, unspecified; K21.9 Gastro-esophageal reflux disease without esophagitis; Z79.899 Other long term (current) drug therapy; Z88.5 Allergy status to narcotic agent; Z88.6 Allergy status to analgesic agent; Z88.8 Allergy status to other drugs, medicaments and biological substances; Z86.14 Personal history of Methicillin resistant Staphylococcus aureus infection
CPT/HCPCS: 99283; 96372; J1885

== ENCOUNTER 2020-05-19 00:31 | Emergency (ER) | payer OTHER ==
[2020-05-19 00:38] VITALS: RESP 20; TEMP 97.7
--- NOTE | 2020-05-19 00:57 | ED ---
Arrhythmia/Palpitations HPI - General Chief Complaint: Arrhythmia/Palpitations Stated Complaint: Heart racing, dizziness Time Seen by Provider: 05/19/20 00:39 Source: patient, family Mode of arrival: ambulatory Limitations: no limitations - History of Present Illness Initial Comments: 34 year-old female patient presents to the emergency department today for evaluation of palpitations and dizziness. Patient states that she was sleeping, states she woke from sleep and her heart was racing. States she felt a warm flush go through her body and focus on her abdomen. States she did become nauseated. States she got up to use Vaseline became dizzy and felt like she was going to pass out. States she sat back down and the symptoms continued for approximately 10 minutes of she decided to come in and get checked out. She states she does not have significant medical history. She is treated for bipolar and was just started on a low-dose Lamictal about a week ago. Patient does admit to heavy energy drink use, states she had 3 today while at work between 8 AM and 4 PM. She denies any personal history of cardiac disease. States her grandmother did from a heart attack but at an old age. She denies any alcohol or street drug use. Patient denies any recent rash, fever, chills, cough, shortness of breath, chest pain, abdominal pain, diarrhea, constipation, back pain, numbness, tingling, hematuria, dysuria, urinary urgency, urinary frequency, headache, visual changes, or any other complaints. - Related Data Home Medications Medication Instructions Recorded Confirmed Norgestimate-Ethinyl Estradiol 1 tab PO HS 11/10/18 01/16/19 [Sprintec 28 Day Tablet] Esomeprazole Magnesium [NexIUM] 20 mg PO QAM 01/11/19 01/16/19 SUMAtriptan succinate [Imitrex] 50 mg PO DAILY PRN 01/11/19 01/16/19 Previous Rx's Medication Instructions Recorded Docusate [Colace] 100 mg PO BID #20 capsule 01/16/19 HYDROcodone/APAP 5-325MG [[place] 1 tab PO Q6HR PRN #10 tab 01/16/19 5-325] SUMAtriptan succinate [Sumatriptan 4 mg SQ DAILY PRN #30 ml 03/26/19 Succinate] SUMAtriptan succinate [Imitrex] 50 mg PO ONCE PRN #10 tablet 03/18/20 Allergies Allergy/AdvReac Type Severity Reaction Status Date / Time codeine phosphate Allergy Mild Itching Verified 05/19/20 00:38 [From Tylenol-Codeine #3] lorazepam [From Ativan] Allergy agitation Verified 05/19/20 00:38 and doesn't remember tramadol AdvReac paranoid Verified 05/19/20 00:38 Review of Systems ROS Statement: Those systems with pertinent positive or pertinent negative responses have been documented in the HPI. ROS Other: All systems not noted in ROS Statement are negative. Past Medical History Past Medical History: GERD/Reflux, Seizure Disorder Additional Past Medical History / Comment(s): abdominal pain,last seizure approx Feb 2014,migraines History of Any Multi-Drug Resistant Organisms: MRSA Date of last positivie culture/infection: 2012 MDRO Source:: stomach wound Past Surgical History: Adenoidectomy, Cholecystectomy, Orthopedic Surgery Additional Past Surgical History / Comment(s): brain surgery tx of seizures, eye surgery Past Anesthesia/Blood Transfusion Reactions: No Reported Reaction Additional Past Anesthesia/Blood Transfusion Reaction / Comment(s): no hx blood transfusion Past Psychological History: Anxiety, Bipolar, Depression Smoking Status: Former smoker Past Alcohol Use History: None Reported Past Drug Use History: None Reported - Past Family History Mother Family Medical History: No Reported History Father Brother(s) Family Medical History: Cancer Additional Family Medical History / Comment(s): bladder General Exam Limitations: no limitations General appearance: alert, in no apparent distress, other (this is a well- developed, well-nourished adult female patient in no acute distress.) Eye exam: Present: normal appearance, PERRL, EOMI. Absent: scleral icterus, conjunctival injection, nystagmus, periorbital swelling ENT exam: Present: normal exam, normal oropharynx, mucous membranes moist Respiratory exam: Present: normal lung sounds bilaterally. Absent: respiratory distress, wheezes, rales, rhonchi, stridor Cardiovascular Exam: Present: regular rate, normal rhythm, normal heart sounds. Absent: systolic murmur, diastolic murmur, rubs, gallop, clicks GI/Abdominal exam: Present: soft, normal bowel sounds. Absent: distended, tenderness, guarding, rebound, rigid Neurological exam: Present: alert, oriented X3, CN II-XII intact Psychiatric exam: Present: normal affect, normal mood Skin exam: Present: warm, dry, intact, normal color. Absent: rash Course Vital Signs 05/19/20 05/19/20 05/19/20 00:33 00:59 01:00 Temperature 97.7 F Pulse Rate 73 78 Pulse Rate [ 73 [employer] Ax Consultant ] Respiratory 20 20 Rate Blood Pressure 122/81 123/83 O2 Sat by Pulse 99 100 Oximetry EKG Findings - EKG Comments: EKG Findings:: EKG obtained at 0048 shows normal sinus rhythm with a ventricular rate of 68, DE interval 176, QRS duration 84, QT 412, QTC 438. No evidence of ST elevation or depression. Medical Decision Making - Medical Decision Making 34 maria fernanda-old female patient presented to the emergency department today for evaluation after having an episode of palpitations/racing heart at home. Physical examination was unremarkable. Lungs are clear to auscultation. Upon arrival her heart rate is within the normal range in the 70s. EKG was obtained and showed normal sinus with no ectopy or ST elevation or depression. Vital signs were normal. Patient was ambulated through the department, vital signs were rechecked. She is still symptom free. We did discuss multiple causes for her symptoms. she is instructed to decrease energy drink intake. She'll be discharged up with her primary care physician for recheck on Wednesday, she is urged to discuss Holter monitoring. Return parameters were discussed in detail. She verbalizes understanding and agrees with this plan. Disposition Clinical Impression: Palpitations Disposition: HOME SELF-CARE Condition: Good Instructions (If sedation given, give patient instructions): Heart Palpitations (ED) Additional Instructions: Increase fluids. Decrease intake of energy drinks. Follow up through primary care physician, discuss Holter monitoring. Return to the emergency department for any new, worsening, or concerning symptoms. Is patient prescribed a controlled substance at d/c from ED?: No Referrals: Damien Simpson MD [Primary Care Provider] - 1-2 days Time of Disposition: 01:17
[2020-05-19 01:00] VITALS: BP 123/83
[2020-05-19 01:02] VITALS: PULSE 73
== END 2020-05-19 01:34 | disposition home or self-care (01) ==
LOC: EC 00:31
DX: R00.2 Palpitations (principal); K21.9 Gastro-esophageal reflux disease without esophagitis; G43.909 Migraine, unspecified, not intractable, without status migrainosus; Z79.3 Long term (current) use of hormonal contraceptives; Z79.899 Other long term (current) drug therapy; Z88.5 Allergy status to narcotic agent; Z88.8 Allergy status to other drugs, medicaments and biological substances; Z87.891 Personal history of nicotine dependence
CPT/HCPCS: 93005; 99284

== ENCOUNTER 2020-06-30 01:33 | Emergency (ER) | payer OTHER ==
[2020-06-30 01:53] VITALS: TEMP 98.7
--- NOTE | 2020-06-30 03:37 | ED ---
Arrhythmia/Palpitations HPI - General Chief Complaint: Arrhythmia/Palpitations Stated Complaint: Anxiety, body shaking Time Seen by Provider: 06/30/20 03:09 Source: patient Mode of arrival: ambulatory Limitations: no limitations - History of Present Illness Initial Comments: 's patient is a 34-year-old woman who presents to be evaluated for constellation of symptoms that she woke with tonight. The patient states she had been feeling well when she went to bed. She states she woke with a start and found that her heart was racing, she was feeling shaky and anxious. Patient had never had an episode like this and presented here for evaluation. She states that in the process of coming in here she would has been feeling better and better and now back to her usual state of health. Patient denies chest pain. No diaphoresis, nausea or vomiting. MD Complaint: palpitations -: minutes(s) Context: awoke with symptoms Associated Symptoms: shortness of breath, anxiety, feeling of impending doom, other - Related Data Home Medications Medication Instructions Recorded Confirmed Norgestimate-Ethinyl Estradiol 1 tab PO HS 11/10/18 01/16/19 [Sprintec 28 Day Tablet] Esomeprazole Magnesium [NexIUM] 20 mg PO QAM 01/11/19 01/16/19 SUMAtriptan succinate [Imitrex] 50 mg PO DAILY PRN 01/11/19 01/16/19 Previous Rx's Medication Instructions Recorded Docusate [Colace] 100 mg PO BID #20 capsule 01/16/19 HYDROcodone/APAP 5-325MG [[place] 1 tab PO Q6HR PRN #10 tab 01/16/19 5-325] SUMAtriptan succinate [Sumatriptan 4 mg SQ DAILY PRN #30 ml 03/26/19 Succinate] SUMAtriptan succinate [Imitrex] 50 mg PO ONCE PRN #10 tablet 03/18/20 Allergies Allergy/AdvReac Type Severity Reaction Status Date / Time codeine phosphate Allergy Mild Itching Verified 06/30/20 01:53 [From Tylenol-Codeine #3] lorazepam [From Ativan] Allergy agitation Verified 06/30/20 01:53 and doesn't remember tramadol AdvReac paranoid Verified 06/30/20 01:53 Review of Systems ROS Statement: Those systems with pertinent positive or pertinent negative responses have been documented in the HPI. ROS Other: All systems not noted in ROS Statement are negative. Constitutional: Denies: fever, chills Respiratory: Reports: as per HPI, dyspnea. Denies: cough Cardiovascular: Reports: as per HPI, palpitations. Denies: chest pain, orthopnea, edema, syncope Gastrointestinal: Denies: abdominal pain, nausea, vomiting, diarrhea Genitourinary: Denies: dysuria, hematuria Musculoskeletal: Denies: back pain Skin: Denies: rash Neurological: Denies: headache, weakness, numbness Psychiatric: Reports: as per HPI, anxiety Past Medical History Past Medical History: GERD/Reflux, Seizure Disorder Additional Past Medical History / Comment(s): abdominal pain,last seizure approx Feb 2014,migraines History of Any Multi-Drug Resistant Organisms: MRSA Date of last positivie culture/infection: 2012 MDRO Source:: stomach wound Past Surgical History: Adenoidectomy, Cholecystectomy, Orthopedic Surgery Additional Past Surgical History / Comment(s): brain surgery tx of seizures, eye surgery Past Anesthesia/Blood Transfusion Reactions: No Reported Reaction Additional Past Anesthesia/Blood Transfusion Reaction / Comment(s): no hx blood transfusion Past Psychological History: Anxiety, Bipolar, Depression Smoking Status: Former smoker Past Alcohol Use History: None Reported Past Drug Use History: None Reported - Past Family History Mother Family Medical History: No Reported History Father Brother(s) Family Medical History: Cancer Additional Family Medical History / Comment(s): bladder General Exam Limitations: no limitations General appearance: alert, in no apparent distress Head exam: Present: atraumatic, normocephalic Eye exam: Present: normal appearance. Absent: scleral icterus, conjunctival injection ENT exam: Present: normal oropharynx Neck exam: Present: normal inspection Respiratory exam: Present: normal lung sounds bilaterally. Absent: respiratory distress, wheezes, rales, rhonchi, stridor Cardiovascular Exam: Present: regular rate, normal rhythm, normal heart sounds. Absent: systolic murmur, diastolic murmur, rubs, gallop GI/Abdominal exam: Present: soft. Absent: distended, tenderness, guarding, rebound, rigid, mass Extremities exam: Present: normal inspection, normal capillary refill. Absent: pedal edema, calf tenderness Back exam: Present: normal inspection Neurological exam: Present: alert Skin exam: Present: warm, dry, intact, normal color. Absent: rash Course Vital Signs 06/30/20 01:49 Temperature 98.7 F Pulse Rate 84 Respiratory 20 Rate Blood Pressure 118/79 O2 Sat by Pulse 98 Oximetry EKG Findings - EKG Results: EKG: interpreted by FAITH LEMUS, sinus rhythm (Rate 78 bpm), normal axis, normal QRS, normal ST/T, no acute changes Medical Decision Making - Medical Decision Making Patient is a 34-year-old woman presenting with symptoms consistent with episode of sleep apnea. Her symptoms have resolved. She appears well on exam and ECG and chest x-ray unremarkable. I discussed appropriate further care and follow- up as well as return parameters. - Lab Data Lab Results 06/30/20 Range/Units 03:31 Urine HCG, Qual Not Detected (Not Detectd) Disposition Clinical Impression: Sleep apnea Disposition: HOME SELF-CARE Condition: Good Instructions (If sedation given, give patient instructions): Sleep Apnea (DC) Is patient prescribed a controlled substance at d/c from ED?: No Referrals: Damien Simpson MD [Primary Care Provider] - 1-2 days
--- NOTE | 2020-06-30 04:47 | XR ---
EXAM: XR Chest, 2 Views CLINICAL HISTORY: ITS.REASON XR Reason: dyspnea TECHNIQUE: Frontal and lateral views of the chest. COMPARISON: No relevant prior studies available. FINDINGS: Lungs: No consolidation or mass. Pleural space: No effusion. Heart: No cardiomegaly. Bones/joints: No acute findings. IMPRESSION: No acute cardiopulmonary process.
[2020-06-30 05:17] VITALS: BP 100/60; PULSE 78; RESP 18
== END 2020-06-30 05:16 | disposition home or self-care (01) ==
LOC: EC 01:33
DX: G47.30 Sleep apnea, unspecified (principal); R00.2 Palpitations; K21.9 Gastro-esophageal reflux disease without esophagitis; Z79.899 Other long term (current) drug therapy; Z88.5 Allergy status to narcotic agent; Z88.6 Allergy status to analgesic agent; Z88.8 Allergy status to other drugs, medicaments and biological substances; Z86.14 Personal history of Methicillin resistant Staphylococcus aureus infection; Z87.891 Personal history of nicotine dependence; Z90.89 Acquired absence of other organs; Z90.49 Acquired absence of other specified parts of digestive tract
CPT/HCPCS: 71046; 81025; 93005; 99285

== ENCOUNTER → 2020-07-18 | Outpatient (CLI) | payer OTHER ==
--- NOTE | 2020-07-18 17:15 | CONS ---
CONSULTATION DATE OF SERVICE: 07/18/2020. 35-year-old lady has been evaluated in the sleep center for possible obstructive sleep apnea-hypopnea syndrome. HISTORY OF PRESENT ILLNESS SLEEP WAKE EVALUATION: SLEEP SCHEDULE: Patient usual sleep schedule on weekdays from 9 or 10 p.m. to 6 or 6:30 a.m. on weekends from 10 p.m. until 7 or 8 a.m. FALLING ASLEEP: Sometimes she has problems with falling asleep. He has TV set in bedroom. DURING SLEEP: Usually sleeps on the back or side position. She snores, but not very loudly according to patient, and she wakes up from sleep with episodes of gasping for air and palpitations. For the night, she wakes up to 7 times with 2 episodes of nocturia. DURING THE DAY/SLEEP WAKE EVALUATION: In the morning, patient wakes up tired, has problems with memory, concentration, irritability, depression and anxiety. [place] Sleepiness Scale is 7. PAST MEDICAL HISTORY: Positive for epilepsy, migraines in the morning after awakenings, acid reflux. PAST SURGICAL HISTORY: Brain surgery for epilepsy in 2004, cholecystectomy, adenoidectomy. MEDICATIONS: Lamictal once a day, pantoprazole once a day. SOCIAL HISTORY: Positive for smoking; quit in 2013. Alcohol consumption occasional. FAMILY HISTORY: Liver problems and thyroid problems, hypertension, asthma, fibromyalgia. REVIEW OF SYSTEMS: Multiple awakenings from sleep, awakenings with gasping for air and palpitation. PHYSICAL EXAMINATION: GENERAL: A lady without distress. BP 124/66, HR 81, RR 15, height 5 feet 6 inches, weight 259 pounds, BMI 41.8, temperature 97.2, oxygen saturation at room air 98%. HEENT: PERRLA, EOMI. Oropharynx low position of soft palate. Mallampati 3. Tonsils enlarged. NECK: Supple, no JVD. Thyroid is not palpable. LUNGS: Clear to percussion and to auscultation. Good air exchange. No wheezing or rhonchi. HEART: S1, S2 regular. No murmurs, gallops, or rubs. ABDOMEN: Obese. Soft and nontender. Bowel sounds are present. No organomegaly appreciated. EXTREMITIES: No clubbing or cyanosis. 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 Cranial nerves 2 to 7 intact. There is no fasciculation or atrophy. noted. No focal deficits observed. IMPRESSION: 1. Snoring, multiple awakenings from sleep up to 7 times with 2 episodes of nocturia. Low position of soft palate, enlarged tonsils, wide neck 17 inches in circumference, episodes of sleepiness during the day. The patient takes naps around 11 am, obstructive sleep apnea-hypopnea syndrome. 2. Obesity, BMI 41.8. 3. Bipolar disorder. 4. History of epilepsy status post brain surgery for epilepsy. 5. Acid reflux. 6. Episodes of migraine started in the morning, possibly secondary to obstructive sleep apnea. 7. Status post cholecystectomy. 8. Status post adenoidectomy. PLAN: 1. Polysomnography for evaluation of patient's breathing during sleep. 2. CPAP/BiPAP titration if sleep study confirms obstructive sleep apnea-hypopnea syndrome. 3. Preferable position during sleep on the side. 4. No driving if patient feels any sleepiness. 5. I will see patient for follow up visit to explain results of testing and following plan. Thank you very much for referring this patient for consultation. Sincerely, Juancarlos Cunha MD, PhD, FAASM Diplomat of [place] [employer] [place] [employer] [facility] [place] MMODL / IJN: [id number] /
== END ==
LOC: SLEEP 14:11
PROVIDERS: ATTEND Internal Medicine Critical Care Medicine
DX: G47.33 Obstructive sleep apnea (adult) (pediatric) (principal); E66.9 Obesity, unspecified; Z68.41 Body mass index [BMI] 40.0-44.9, adult; F31.9 Bipolar disorder, unspecified; G40.909 Epilepsy, unspecified, not intractable, without status epilepticus; K21.9 Gastro-esophageal reflux disease without esophagitis; G43.909 Migraine, unspecified, not intractable, without status migrainosus; Z87.891 Personal history of nicotine dependence; Z90.49 Acquired absence of other specified parts of digestive tract; Z98.890 Other specified postprocedural states
CPT/HCPCS: 99211

== ENCOUNTER 2020-08-31 00:11 | Emergency (ER) | payer OTHER ==
[2020-08-31 00:16] VITALS: TEMP 97.6
[2020-08-31] MEDS ORDERED: ASPIRIN 81 MG PO STA (00:35)
--- NOTE | 2020-08-31 00:41 | ED ---
Dizziness HPI - General Chief Complaint: Dizziness Stated Complaint: Chest Pain Time Seen by Provider: 08/31/20 00:27 Source: patient Mode of arrival: ambulatory Limitations: no limitations - History of Present Illness Initial Comments: 35-year-old female, former smoker presenting to the ER today for cc of chest discomfort. pt states approximately 40 minutes ago she was at home when she felt her heart race a little, then a pressure/some indigestion. pt states that it worried her and thus she drove to the ER. PT states it is starting to feel better. She dneies any specific alleviating or aggrevating factors. Pt denies shortness of breath hemoptysis leg swelling history DVT pulmonary embolism, history of cancer or recent surgeries she denies exogenous hormone use, or immobilization. Patient denies sharp pain, back pain, abdominal pain or pain wtih a deep breath. Pt denies family history of CAD at a young age, states maybe her grandmother has a NH "when she was old" otherwise no noted familial history. Pt dneies DM, HTN.Patient is obese. Pt has no additional complaints or concerns on arrival she appears well nontoxic in no acute di stress. - Related Data Home Medications Medication Instructions Recorded Confirmed Norgestimate-Ethinyl Estradiol 1 tab PO HS 11/10/18 01/16/19 [Sprintec 28 Day Tablet] Esomeprazole Magnesium [NexIUM] 20 mg PO QAM 01/11/19 01/16/19 SUMAtriptan succinate [Imitrex] 50 mg PO DAILY PRN 01/11/19 01/16/19 Previous Rx's Medication Instructions Recorded Docusate [Colace] 100 mg PO BID #20 capsule 01/16/19 HYDROcodone/APAP 5-325MG [Calvert 1 tab PO Q6HR PRN #10 tab 01/16/19 5-325] SUMAtriptan succinate [Sumatriptan 4 mg SQ DAILY PRN #30 ml 03/26/19 Succinate] SUMAtriptan succinate [Imitrex] 50 mg PO ONCE PRN #10 tablet 03/18/20 Allergies Allergy/AdvReac Type Severity Reaction Status Date / Time codeine phosphate Allergy Mild Itching Verified 08/31/20 00:16 [From Tylenol-Codeine #3] lorazepam [From Ativan] Allergy agitation Verified 08/31/20 00:16 and doesn't remember tramadol AdvReac paranoid Verified 08/31/20 00:16 Review of Systems ROS Statement: Those systems with pertinent positive or pertinent negative responses have been documented in the HPI. ROS Other: All systems not noted in ROS Statement are negative. Past Medical History Past Medical History: GERD/Reflux, Seizure Disorder Additional Past Medical History / Comment(s): last seizure approx Feb 2014,migraines History of Any Multi-Drug Resistant Organisms: MRSA Date of last positivie culture/infection: 2012 MDRO Source:: stomach wound Past Surgical History: Adenoidectomy, Cholecystectomy, Orthopedic Surgery Additional Past Surgical History / Comment(s): brain surgery tx of seizures, eye surgery Past Anesthesia/Blood Transfusion Reactions: No Reported Reaction Additional Past Anesthesia/Blood Transfusion Reaction / Comment(s): no hx blood transfusion Past Psychological History: Anxiety, Bipolar, Depression Smoking Status: Former smoker Past Alcohol Use History: None Reported Past Drug Use History: None Reported - Past Family History Mother Family Medical History: No Reported History Father Brother(s) Family Medical History: Cancer Additional Family Medical History / Comment(s): bladder General Exam - General Exam Comments Initial Comments: General: The patient is awake and alert, in no distress Eye: +3 mm pupils are equal, round and reactive to light, extra-ocular movements are intact. No nystagmus. There is normal conjunctiva bilaterally. No signs of icterus. Ears, nose, mouth and throat: There are moist mucous membranes and no oral lesions. Neck: The neck is supple, there is no tenderness or JVD. Cardiovascular: There is a regular rate and rhythm. No murmur, rub or gallop is appreciated. Respiratory: Lungs are clear to auscultation, respirations are non-labored, breath sounds are equal. No wheezes, stridor, rales, or rhonchi. Gastrointestinal: Soft, non-distended, non-tender abdomen without masses or organomegaly noted. There is no rebound or guarding present. Musculoskeletal: Normal ROM, no tenderness. Strength 5/5. Sensation intact. Radial and DP pulses equal bilaterally 2+. Neurological: A&O x 3. CN II-XII intact grossly, There are no obvious motor or sensory deficits. Coordination appears grossly intact. Speech is normal. Skin: Skin is warm and dry and no rashes or lesions are noted. No calf pain no LE edema Psychiatric: Cooperative, appropriate mood & affect, normal judgment. Limitations: no limitations Course Vital Signs 08/31/20 08/31/20 00:12 04:33 Temperature 97.6 F Pulse Rate 94 82 Respiratory 18 16 Rate Blood Pressure 143/77 132/83 O2 Sat by Pulse 97 97 Oximetry Medical Decision Making - Medical Decision Making 35yo female obese. Former smoker, no other PMH. Pt presenting for episode of chest discomfort. gone now. pt EKG no acute findings. pt CXR clear. pt initial troponin (-). pt signed out pending second troponin to attneding dr alexandre. current disposition if 2nd troponin (-) given patient heart score low is discharge with outpatinet f/u return for worsening symptoms. - Lab Data Result diagrams: 08/31/20 00:45 08/31/20 00:45 Lab Results 08/31/20 08/31/20 08/31/20 Range/Units 00:45 00:45 00:45 WBC 9.6 (3.8-10.6) k/uL RBC 4.73 (3.80-5.40) m/uL Hgb 13.5 (11.4-16.0) gm/dL Hct 39.5 (34.0-46.0) % MCV 83.4 (80.0-100.0) fL MCH 28.6 (25.0-35.0) pg MCHC 34.2 (31.0-37.0) g/dL RDW 12.5 (11.5-15.5) % Plt Count 279 (150-450) k/uL MPV 7.4 Neutrophils % 67 % Lymphocytes % 23 % Monocytes % 5 % Eosinophils % 4 % Basophils % 1 % Neutrophils # 6.5 (1.3-7.7) k/uL Lymphocytes # 2.2 (1.0-4.8) k/uL Monocytes # 0.4 (0-1.0) k/uL Eosinophils # 0.4 (0-0.7) k/uL Basophils # 0.1 (0-0.2) k/uL PT 9.7 (9.0-12.0) sec INR 0.9 (<1.2) APTT 24.3 (22.0-30.0) sec Sodium (137-145) mmol/L Potassium (3.5-5.1) mmol/L Chloride (98-107) mmol/L Carbon Dioxide (22-30) mmol/L Anion Gap mmol/L BUN (7-17) mg/dL Creatinine (0.52-1.04) mg/dL Est GFR (CKD-EPI)AfAm (>60 ml/min/1.73 sqM) Est GFR (CKD-EPI)NonAf (>60 ml/min/1.73 sqM) Glucose (74-99) mg/dL Calcium (8.4-10.2) mg/dL Magnesium (1.6-2.3) mg/dL Total Bilirubin (0.2-1.3) mg/dL AST (14-36) U/L ALT (4-34) U/L Alkaline Phosphatase (38-126) U/L Troponin I (0.000-0.034) ng/mL Total Protein (6.3-8.2) g/dL Albumin (3.5-5.0) g/dL Urine HCG, Qual Not Detected (Not Detectd) 08/31/20 08/31/20 08/31/20 Range/Units 00:45 00:45 03:14 WBC (3.8-10.6) k/uL RBC (3.80-5.40) m/uL Hgb (11.4-16.0) gm/dL Hct (34.0-46.0) % MCV (80.0-100.0) fL MCH (25.0-35.0) pg MCHC (31.0-37.0) g/dL RDW (11.5-15.5) % Plt Count (150-450) k/uL MPV Neutrophils % % Lymphocytes % % Monocytes % % Eosinophils % % Basophils % % Neutrophils # (1.3-7.7) k/uL Lymphocytes # (1.0-4.8) k/uL Monocytes # (0-1.0) k/uL Eosinophils # (0-0.7) k/uL Basophils # (0-0.2) k/uL PT (9.0-12.0) sec INR (<1.2) APTT (22.0-30.0) sec Sodium 139 (137-145) mmol/L Potassium 4.3 (3.5-5.1) mmol/L Chloride 106 (98-107) mmol/L Carbon Dioxide 26 (22-30) mmol/L Anion Gap 7 mmol/L BUN 13 (7-17) mg/dL Creatinine 0.81 (0.52-1.04) mg/dL Est GFR (CKD-EPI)AfAm >90 (>60 ml/min/1.73 sqM) Est GFR (CKD-EPI)NonAf >90 (>60 ml/min/1.73 sqM) Glucose 103 H (74-99) mg/dL Calcium 9.6 (8.4-10.2) mg/dL Magnesium 1.8 (1.6-2.3) mg/dL Total Bilirubin 0.2 (0.2-1.3) mg/dL AST 25 (14-36) U/L ALT 27 (4-34) U/L Alkaline Phosphatase 85 (38-126) U/L Troponin I <0.012 <0.012 (0.000-0.034) ng/mL Total Protein 6.8 (6.3-8.2) g/dL Albumin 3.9 (3.5-5.0) g/dL Urine HCG, Qual (Not Detectd) Disposition Clinical Impression: Chest discomfort Disposition: HOME SELF-CARE Condition: Good Instructions (If sedation given, give patient instructions): Chest Pain (ED) Additional Instructions: Please use medication as discussed. Please follow-up with family doctor in the next 2 days, recommend outpatient stress testing, return if pain/symptoms return. Please return to emergency room if the symptoms increase or worsen or for any other concerns. Is patient prescribed a controlled substance at d/c from ED?: No Referrals: Damien Simpson MD [Primary Care Provider] - 1-2 days Time of Disposition: 02:39
[2020-08-31 01:08] LABS: Basophils # (A) 0.1 k/uL (0-0.2); Basophils % (A) 1 %; Eosinophils # (A) 0.4 k/uL (0-0.7); Eosinophils % (A) 4 %; HCT 39.5 % (34.0-46.0); HGB 13.5 gm/dL (11.4-16.0); Lymphocytes # (A) 2.2 k/uL (1.0-4.8); Lymphocytes % (A) 23 %; MCH 28.6 pg (25.0-35.0); MCHC 34.2 g/dL (31.0-37.0); MCV 83.4 fL (80.0-100.0); Mean Platelet Volume 7.4; Monocytes # (A) 0.4 k/uL (0-1.0); Monocytes % (A) 5 %; Neutrophils # (A) 6.5 k/uL (1.3-7.7); Neutrophils % (A) 67 %; Platelet Count 279 k/uL (150-450); RBC 4.73 m/uL (3.80-5.40); RDW 12.5 % (11.5-15.5); WBC 9.6 k/uL (3.8-10.6)
[2020-08-31 01:19] LABS: INR 0.9 (<1.2); Partial Thromboplastin Time 24.3 sec (22.0-30.0); Prothrombin Time 9.7 sec (9.0-12.0)
[2020-08-31 01:22] LABS: ALT 27 U/L (4-34); AST 25 U/L (14-36); African American GFR (CKD) >90 (>60 ml/min/1.73 sqM); Albumin 3.9 g/dL (3.5-5.0); Alkaline Phosphatase 85 U/L (38-126); Anion Gap 7 mmol/L; Blood Urea Nitrogen 13 mg/dL (7-17); Calcium 9.6 mg/dL (8.4-10.2); Carbon Dioxide 26 mmol/L (22-30); Chloride 106 mmol/L (98-107); Glucose 103 mg/dL (74-99); Magnesium 1.8 mg/dL (1.6-2.3); Non-African American GFR(CKD) >90 (>60 ml/min/1.73 sqM); Potassium 4.3 mmol/L (3.5-5.1); Sodium 139 mmol/L (137-145); Total Bilirubin 0.2 mg/dL (0.2-1.3); Total Protein 6.8 g/dL (6.3-8.2)
--- NOTE | 2020-08-31 01:37 | XR ---
EXAM: XR Chest, 2 Views CLINICAL HISTORY: ITS.REASON XR Reason: Chest Pain TECHNIQUE: Frontal and lateral views of the chest. COMPARISON: 06/30/20. FINDINGS: Lungs: Mild peribronchial thickening. No consolidation. Pleural space: No significant pleural effusion or pneumothorax. Heart: Stable cardiomediastinal silhouette. Mediastinum: See above. Bones/joints: No acute fracture. IMPRESSION: Mild peribronchial thickening. No consolidation.
[2020-08-31 04:37] VITALS: BP 132/83; PULSE 82; RESP 16
== END 2020-08-31 04:37 | disposition home or self-care (01) ==
LOC: EC 00:11
DX: R07.89 Other chest pain (principal); F32.9 Major depressive disorder, single episode, unspecified; F41.9 Anxiety disorder, unspecified; Z87.891 Personal history of nicotine dependence; Z90.49 Acquired absence of other specified parts of digestive tract; K21.9 Gastro-esophageal reflux disease without esophagitis
CPT/HCPCS: 36415; 71046; 80053; 81025; 83735; 84484; 85025; 85610; 85730; 93005; 99285

== ENCOUNTER 2021-05-27 12:44 | Inpatient (IN) | payer OTHER ==
--- NOTE | 2021-05-27 13:56 | ED ---
General Adult HPI - General Chief complaint: Weakness Stated complaint: Chest Pain/Covid+ Time Seen by Provider: 05/27/21 13:16 Source: patient, RN notes reviewed, old records reviewed Mode of arrival: ambulatory Limitations: altered mental status - History of Present Illness Initial comments: 35-year-old female who had presented for generalized weakness. She was seen by triage nurse and coronavirus with suspected. This order was obtained as well as a chest x-ray and EKG as triage orders. While the patient was in x-ray she had witnessed seizure activity. She does have history of seizure disorder. Uncertain what medication she is on. She is unable to give any historical details at the time my evaluation. From reading the triage assessment sheet had mild dyspnea reproducible chest discomfort and generalized weakness which began this morning. - Related Data Home Medications Medication Instructions Recorded Confirmed No Known Home Medications 05/27/21 05/27/21 Allergies Allergy/AdvReac Type Severity Reaction Status Date / Time codeine phosphate Allergy Mild Itching Verified 05/27/21 14:13 [From Tylenol-Codeine #3] lorazepam [From Ativan] Allergy agitation Verified 05/27/21 14:13 and doesn't remember tramadol AdvReac paranoid Verified 05/27/21 14:13 Review of Systems ROS Statement: Those systems with pertinent positive or pertinent negative responses have been documented in the HPI. ROS Other: All systems not noted in ROS Statement are negative. Past Medical History Past Medical History: GERD/Reflux, Seizure Disorder Additional Past Medical History / Comment(s): last seizure approx Feb 2014 ,migraines History of Any Multi-Drug Resistant Organisms: MRSA Date of last positivie culture/infection: 2012 MDRO Source:: stomach wound Past Surgical History: Adenoidectomy, Cholecystectomy, Orthopedic Surgery Additional Past Surgical History / Comment(s): brain surgery tx of seizures, eye surgery Past Anesthesia/Blood Transfusion Reactions: No Reported Reaction Additional Past Anesthesia/Blood Transfusion Reaction / Comment(s): no hx blood transfusion Past Psychological History: Anxiety, Bipolar, Depression Smoking Status: Former smoker Past Alcohol Use History: None Reported Past Drug Use History: None Reported - Past Family History Mother Family Medical History: No Reported History Father Brother(s) Family Medical History: Cancer Additional Family Medical History / Comment(s): bladder General Exam Limitations: no limitations General appearance: lethargic Head exam: Present: atraumatic, normocephalic Eye exam: Present: normal appearance, PERRL ENT exam: Present: normal exam Neck exam: Present: normal inspection. Absent: tenderness, meningismus Respiratory exam: Present: normal lung sounds bilaterally. Absent: respiratory distress, wheezes Cardiovascular Exam: Present: regular rate, normal rhythm GI/Abdominal exam: Present: soft. Absent: distended, tenderness, guarding Extremities exam: Present: normal inspection, normal capillary refill. Absent: pedal edema Neurological exam: Absent: motor sensory deficit Skin exam: Present: warm, dry, intact. Absent: cyanosis, diaphoretic Course Vital Signs 05/27/21 05/27/21 12:48 15:44 Temperature 98.2 F Pulse Rate 83 83 Respiratory 18 18 Rate Blood Pressure 123/88 118/78 O2 Sat by Pulse 100 95 Oximetry EKG Findings - EKG Comments: EKG Findings:: Sinus rhythm, rate of 70, NV interval 171, QRS duration 108, QTC [address] segment elevation. Medical Decision Making - Medical Decision Making 35-year-old female who had presented for her generalized weakness. I was unable to get a history from this patient prior to her seizure activity in the emergency department she had a witnessed tonic-clonic seizure. With remote history of seizure disorder but has been many years since she's had seizure activity is not currently on any antiseizure medication. Patient returns to normal alert and oriented nonfocal exam. Head CT showed postsurgical changes but no acute findings. She has leukocytosis likely secondary to seizure, lactic acid secondary to seizure. Mild transaminitis. Covid testing is negative. Patient did have some nausea and vomiting post seizure. She will be For observation, seizure precautions. Case discussed with Dr. Simpson who will admit. Neurology placed on consult. - Lab Data Result diagrams: 05/27/21 14:05 05/27/21 14:05 Lab Results 05/27/21 05/27/21 05/27/21 Range/Units 13:01 14:05 14:05 WBC 13.7 H (3.8-10.6) k/uL RBC 4.82 (3.80-5.40) m/uL Hgb 13.3 (11.4-16.0) gm/dL Hct 40.7 (34.0-46.0) % MCV 84.4 (80.0-100.0) fL MCH 27.7 (25.0-35.0) pg MCHC 32.8 (31.0-37.0) g/dL RDW 13.5 (11.5-15.5) % Plt Count 319 (150-450) k/uL MPV 7.9 Neutrophils % 79 % Lymphocytes % 16 % Monocytes % 2 % Eosinophils % 0 % Basophils % 1 % Neutrophils # 10.8 H (1.3-7.7) k/uL Lymphocytes # 2.2 (1.0-4.8) k/uL Monocytes # 0.3 (0-1.0) k/uL Eosinophils # 0.1 (0-0.7) k/uL Basophils # 0.1 (0-0.2) k/uL PT 10.3 (9.0-12.0) sec INR 0.9 (<1.2) APTT 24.1 (22.0-30.0) sec Sodium (137-145) mmol/L Potassium (3.5-5.1) mmol/L Chloride (98-107) mmol/L Carbon Dioxide (22-30) mmol/L Anion Gap mmol/L BUN (7-17) mg/dL Creatinine (0.52-1.04) mg/dL Est GFR (CKD-EPI)AfAm (>60 ml/min/1.73 sqM) Est GFR (CKD-EPI)NonAf (>60 ml/min/1.73 sqM) Glucose (74-99) mg/dL Lactic Ac Sepsis Rflx Plasma Lactic Acid Melo (0.7-2.0) mmol/L Calcium (8.4-10.2) mg/dL Magnesium (1.6-2.3) mg/dL Total Bilirubin (0.2-1.3) mg/dL AST (14-36) U/L ALT (4-34) U/L Alkaline Phosphatase (38-126) U/L Troponin I (0.000-0.034) ng/mL Total Protein (6.3-8.2) g/dL Albumin (3.5-5.0) g/dL Urine Color Urine Appearance (Clear) Urine pH (5.0-8.0) Ur Specific Artesian (1.001-1.035) Urine Protein (Negative) Urine Glucose (UA) (Negative) Urine Ketones (Negative) Urine Blood (Negative) Urine Nitrite (Negative) Urine Bilirubin (Negative) Urine Urobilinogen (<2.0) mg/dL Ur Leukocyte Esterase (Negative) Urine HCG, Qual (Not Detectd) Urine Opiates Screen (NotDetected) Ur Oxycodone Screen (NotDetected) Urine Methadone Screen (NotDetected) Ur Propoxyphene Screen (NotDetected) Ur Barbiturates Screen (NotDetected) U Tricyclic Antidepress (NotDetected) Ur Phencyclidine Scrn (NotDetected) Ur Amphetamines Screen (NotDetected) U Methamphetamines Scrn (NotDetected) U Benzodiazepines Scrn (NotDetected) Urine Cocaine Screen (NotDetected) U Marijuana (THC) Screen (NotDetected) Coronavirus (PCR) Not Detected (Not Detectd) 05/27/21 05/27/21 05/27/21 Range/Units 14:05 14:05 14:05 WBC (3.8-10.6) k/uL RBC (3.80-5.40) m/uL Hgb (11.4-16.0) gm/dL Hct (34.0-46.0) % MCV (80.0-100.0) fL MCH (25.0-35.0) pg MCHC (31.0-37.0) g/dL RDW (11.5-15.5) % Plt Count (150-450) k/uL MPV Neutrophils % % Lymphocytes % % Monocytes % % Eosinophils % % Basophils % % Neutrophils # (1.3-7.7) k/uL Lymphocytes # (1.0-4.8) k/uL Monocytes # (0-1.0) k/uL Eosinophils # (0-0.7) k/uL Basophils # (0-0.2) k/uL PT (9.0-12.0) sec INR (<1.2) APTT (22.0-30.0) sec Sodium 137 (137-145) mmol/L Potassium 4.0 (3.5-5.1) mmol/L Chloride 105 (98-107) mmol/L Carbon Dioxide 19 L (22-30) mmol/L Anion Gap 13 mmol/L BUN 12 (7-17) mg/dL Creatinine 0.80 (0.52-1.04) mg/dL Est GFR (CKD-EPI)AfAm >90 (>60 ml/min/1.73 sqM) Est GFR (CKD-EPI)NonAf >90 (>60 ml/min/1.73 sqM) Glucose 121 H (74-99) mg/dL Lactic Ac Sepsis Rflx Plasma Lactic Acid Melo 5.4 H* (0.7-2.0) mmol/L Calcium 8.9 (8.4-10.2) mg/dL Magnesium 1.8 (1.6-2.3) mg/dL Total Bilirubin 0.3 (0.2-1.3) mg/dL AST 69 H (14-36) U/L ALT 35 H (4-34) U/L Alkaline Phosphatase 74 (38-126) U/L Troponin I 0.018 (0.000-0.034) ng/mL Total Protein 7.1 (6.3-8.2) g/dL Albumin 4.1 (3.5-5.0) g/dL Urine Color Urine Appearance (Clear) Urine pH (5.0-8.0) Ur Specific Artesian (1.001-1.035) Urine Protein (Negative) Urine Glucose (UA) (Negative) Urine Ketones (Negative) Urine Blood (Negative) Urine Nitrite (Negative) Urine Bilirubin (Negative) Urine Urobilinogen (<2.0) mg/dL Ur Leukocyte Esterase (Negative) Urine HCG, Qual (Not Detectd) Urine Opiates Screen (NotDetected) Ur Oxycodone Screen (NotDetected) Urine Methadone Screen (NotDetected) Ur Propoxyphene Screen (NotDetected) Ur Barbiturates Screen (NotDetected) U Tricyclic Antidepress (NotDetected) Ur Phencyclidine Scrn (NotDetected) Ur Amphetamines Screen (NotDetected) U Methamphetamines Scrn (NotDetected) U Benzodiazepines Scrn (NotDetected) Urine Cocaine Screen (NotDetected) U Marijuana (THC) Screen (NotDetected) Coronavirus (PCR) (Not Detectd) 05/27/21 05/27/21 05/27/21 Range/Units 14:43 15:39 15:39 WBC (3.8-10.6) k/uL RBC (3.80-5.40) m/uL Hgb (11.4-16.0) gm/dL Hct (34.0-46.0) % MCV (80.0-100.0) fL MCH (25.0-35.0) pg MCHC (31.0-37.0) g/dL RDW (11.5-15.5) % Plt Count (150-450) k/uL MPV Neutrophils % % Lymphocytes % % Monocytes % % Eosinophils % % Basophils % % Neutrophils # (1.3-7.7) k/uL Lymphocytes # (1.0-4.8) k/uL Monocytes # (0-1.0) k/uL Eosinophils # (0-0.7) k/uL Basophils # (0-0.2) k/uL PT (9.0-12.0) sec INR (<1.2) APTT (22.0-30.0) sec Sodium (137-145) mmol/L Potassium (3.5-5.1) mmol/L Chloride (98-107) mmol/L Carbon Dioxide (22-30) mmol/L Anion Gap mmol/L BUN (7-17) mg/dL Creatinine (0.52-1.04) mg/dL Est GFR (CKD-EPI)AfAm (>60 ml/min/1.73 sqM) Est GFR (CKD-EPI)NonAf (>60 ml/min/1.73 sqM) Glucose (74-99) mg/dL Lactic Ac Sepsis Rflx Y Plasma Lactic Acid Melo (0.7-2.0) mmol/L Calcium (8.4-10.2) mg/dL Magnesium (1.6-2.3) mg/dL Total Bilirubin (0.2-1.3) mg/dL AST (14-36) U/L ALT (4-34) U/L Alkaline Phosphatase (38-126) U/L Troponin I (0.000-0.034) ng/mL Total Protein (6.3-8.2) g/dL Albumin (3.5-5.0) g/dL Urine Color Yellow Urine Appearance Clear (Clear) Urine pH 7.0 (5.0-8.0) Ur Specific Artesian 1.026 (1.001-1.035) Urine Protein Trace H (Negative) Urine Glucose (UA) Negative (Negative) Urine Ketones 1+ H (Negative) Urine Blood Negative (Negative) Urine Nitrite Negative (Negative) Urine Bilirubin Negative (Negative) Urine Urobilinogen <2.0 (<2.0) mg/dL Ur Leukocyte Esterase Negative (Negative) Urine HCG, Qual Not Detected (Not Detectd) Urine Opiates Screen Not Detected (NotDetected) Ur Oxycodone Screen Not Detected (NotDetected) Urine Methadone Screen Not Detected (NotDetected) Ur Propoxyphene Screen Not Detected (NotDetected) Ur Barbiturates Screen Not Detected (NotDetected) U Tricyclic Antidepress Not Detected (NotDetected) Ur Phencyclidine Scrn Not Detected (NotDetected) Ur Amphetamines Screen Not Detected (NotDetected) U Methamphetamines Scrn Not Detected (NotDetected) U Benzodiazepines Scrn Not Detected (NotDetected) Urine Cocaine Screen Not Detected (NotDetected) U Marijuana (THC) Screen Not Detected (NotDetected) Coronavirus (PCR) (Not Detectd) Disposition Clinical Impression: Seizure Disposition: [facility] Condition: Stable Is patient prescribed a controlled substance at d/c from ED?: No Referrals: Damien Simpson MD [Primary Care Provider] - 1-2 days Decision to Admit Reason: Admit from EC Decision Date: 05/27/21 Decision Time: 16:55
[2021-05-27 14:28] LABS: Basophils # (A) 0.1 k/uL (0-0.2); Basophils % (A) 1 %; Eosinophils # (A) 0.1 k/uL (0-0.7); Eosinophils % (A) 0 %; HCT 40.7 % (34.0-46.0); HGB 13.3 gm/dL (11.4-16.0); Lymphocytes # (A) 2.2 k/uL (1.0-4.8); Lymphocytes % (A) 16 %; MCH 27.7 pg (25.0-35.0); MCHC 32.8 g/dL (31.0-37.0); MCV 84.4 fL (80.0-100.0); Mean Platelet Volume 7.9; Monocytes # (A) 0.3 k/uL (0-1.0); Monocytes % (A) 2 %; Neutrophils # (A) 10.8 k/uL (1.3-7.7); Neutrophils % (A) 79 %; Platelet Count 319 k/uL (150-450); RBC 4.82 m/uL (3.80-5.40); RDW 13.5 % (11.5-15.5); WBC 13.7 k/uL (3.8-10.6)
[2021-05-27 14:40] LABS: AST 69 U/L (14-36); African American GFR (CKD) >90 (>60 ml/min/1.73 sqM); Albumin 4.1 g/dL (3.5-5.0); Blood Urea Nitrogen 12 mg/dL (7-17); Carbon Dioxide 19 mmol/L (22-30); Chloride 105 mmol/L (98-107); Glucose 121 mg/dL (74-99); Non-African American GFR(CKD) >90 (>60 ml/min/1.73 sqM); Total Bilirubin 0.3 mg/dL (0.2-1.3); Total Protein 7.1 g/dL (6.3-8.2)
[2021-05-27 14:43] LABS: ALT 35 U/L (4-34); Alkaline Phosphatase 74 U/L (38-126); Anion Gap 13 mmol/L; Calcium 8.9 mg/dL (8.4-10.2); Magnesium 1.8 mg/dL (1.6-2.3); Sodium 137 mmol/L (137-145)
[2021-05-27 14:44] LABS: INR 0.9 (<1.2); Partial Thromboplastin Time 24.1 sec (22.0-30.0); Prothrombin Time 10.3 sec (9.0-12.0)
[2021-05-27] MEDS ORDERED: SODIUM CHLORIDE 0.9% 1,000 ML IV ONE (15:03)
--- NOTE | 2021-05-27 15:19 | XR ---
EXAMINATION TYPE: XR chest 2V DATE OF EXAM: 05/27/2021 COMPARISON: 08/31/2020 TECHNIQUE: PA and lateral views submitted. HISTORY: Cough FINDINGS: The lungs are clear and there is no pneumothorax, pleural effusion, or focal pneumonia. Heart size normal. No overt failure. Hypertrophic changes of the spine. IMPRESSION: 1. No acute process.
[2021-05-27 16:03] LABS: Appearance,Urine Clear (Clear); Bilirubin,Urine Negative (Negative); Blood,Urine Negative (Negative); Color,Urine Yellow; Glucose,Urine (UA) Negative (Negative); Ketones,Urine 1+ (Negative); Leukocyte Esterase,Urine Negative (Negative); Nitrite,Urine Negative (Negative); Protein,Urine Trace (Negative); Specific Gravity,Urine 1.026 (1.001-1.035); Urobilinogen,Urine <2.0 mg/dL (<2.0)
--- NOTE | 2021-05-27 16:06 | CT ---
EXAMINATION TYPE: CT brain wo con DATE OF EXAM: 05/27/2021 COMPARISON: CT brain April 04, 2011. HISTORY: seizure CT DLP: 1043.4 mGycm. Automated Exposure Control for Dose Reduction was Utilized. TECHNIQUE: CT scan of the head is performed without contrast. FINDINGS: Left frontal and temporal craniotomy changes are redemonstrated. There is no acute intrac ranial hemorrhage, mass effect, or midline shift identified. Old infarct or encephalomalacia inferior left temporal lobe redemonstrated. The ventricles and sulci are stable and within normal limits in s ize. Del Valle-white matter differentiation is maintained. The globes are intact and the visualized sinus es are clear. IMPRESSION: No acute intracranial hemorrhage or midline shift is seen. 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
[2021-05-27 16:08] LABS: Amphetamine Screen,Urine Not Detected (NotDetected); Barbiturate Screen,Urine Not Detected (NotDetected); Benzodiazepines Screen,Urine Not Detected (NotDetected); Cocaine Screen,Urine Not Detected (NotDetected); Methadone Screen, Urine Not Detected (NotDetected); Opiate Screen,Urine Not Detected (NotDetected); Oxycodone Screen, Urine Not Detected (NotDetected); Phencyclidine Screen,Urine Not Detected (NotDetected); Tricyclic Antidepressant,Urine Not Detected (NotDetected); Urn Cannabinoid Scrn Not Detected (NotDetected)
[2021-05-27] MEDS ORDERED: ONDANSETRON 4 MG/2 ML VIAL IVP STA (16:15)
[2021-05-27] MEDS ORDERED: levETIRAcetam IV 1,000 MG in SALINE 1 100ML.BAG IVPB STA (16:18)
[2021-05-27] MEDS ORDERED: ACETAMINOPHEN TAB 500 MG TAB PO STA (16:27)
[2021-05-27] MEDS ORDERED: ACETAMINOPHEN TAB 325 MG TAB PO PRN (16:52)
[2021-05-27] MEDS ORDERED: ONDANSETRON 4 MG/2 ML VIAL IVP PRN (16:52)
[2021-05-27] MEDS ORDERED: NALOXONE 0.4 MG/ML 1 ML VIAL IV PRN (16:52)
[2021-05-27] MEDS: SODIUM CHLORIDE 0.9% 1,000 ML IV SCH (22:07)
[2021-05-27] MEDS ORDERED: MORPHINE SULFATE 2 MG/ML SYRINGE IVP PRN (23:10)
[2021-05-28] MEDS: SODIUM CHLORIDE 0.9% 1,000 ML IV SCH ×2 (00:27→19:24)
[2021-05-28] MEDS ORDERED: levETIRAcetam 500 MG TAB PO SCH (09:00)
[2021-05-28 11:12] LABS: Basophils # (A) 0.1 k/uL (0-0.2); Basophils % (A) 1 %; Eosinophils # (A) 0.1 k/uL (0-0.7); Eosinophils % (A) 2 %; HCT 40.5 % (34.0-46.0); Lymphocytes # (A) 1.7 k/uL (1.0-4.8); Lymphocytes % (A) 22 %; MCH 27.2 pg (25.0-35.0); MCV 85.1 fL (80.0-100.0); Monocytes # (A) 0.4 k/uL (0-1.0); Monocytes % (A) 5 %; Neutrophils # (A) 5.5 k/uL (1.3-7.7); Neutrophils % (A) 69 %; Platelet Count 289 k/uL (150-450); RBC 4.76 m/uL (3.80-5.40); RDW 13.7 % (11.5-15.5); WBC 7.9 k/uL (3.8-10.6)
--- NOTE | 2021-05-28 11:22 | P.HPIM ---
History of Present Illness H&P Date: 05/28/21 Chief Complaint: Seizure This is a 35-year-old female patient who presented to the ER initially with concerns of fatigue and muscle weakness with concerns of possible COVID-19 infection. apparently during chest x-ray patient experienced a grand mal seizure. Patient does report that she has a history of seizures patient reports her last seizure was in 2013. Patient reports that she was was on medication but took herself off that medication. Patient does follow with neurologist Dr. Cobian. Additional medical history includes GERD, migraines, previous brain surgery and eye surgery. Patient also has a history of anxiety bipolar depression which she follows with outpatient psychiatry services. Patient does reports she's had increased anxiety and paranoid thoughts requesting for psych consult not currently on any medication. Patient denies any suicidal thoughts at this time. COVID-19 negative. 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 Patient has been started on Keppra. Neurology services have been consulted. Patient denies any alcohol use or drug use. Patient denies any change in medications. Initial lactic acid was elevated at 5. 4 repeat lactic 0.9 this is likely secondary from seizure activity infection. Drug screen negative. Patient is currently resting complain bed. Seizure cautions in place. Awaiting neurology consult. Psychiatry services also consulted. Patient denies chest pain or shortness breath. Patient denies nausea vomiting or diarrhea. Patient denies any urinary burning or frequency. Review of Systems Please refer to HPI otherwise unremarkable Past Medical History Past Medical History: GERD/Reflux, Seizure Disorder Additional Past Medical History / Comment(s): Migraines History of Any Multi-Drug Resistant Organisms: None Reported, MRSA Date of last positivie culture/infection: 2012 MDRO Source:: stomach wound Past Surgical History: Adenoidectomy, Cholecystectomy, Orthopedic Surgery Additional Past Surgical History / Comment(s): Brain surgery for history of seizures Past Anesthesia/Blood Transfusion Reactions: No Reported Reaction Additional Past Anesthesia/Blood Transfusion Reaction / Comment(s): no hx blood transfusion Past Psychological History: Anxiety, Bipolar, Depression Additional Psychological History / Comment(s): borderline personality disorder Smoking Status: Former smoker Past Alcohol Use History: None Reported Additional Past Alcohol Use History / Comment(s): quit smoking 2-2014,started smoking at age 8-1ppd Past Drug Use History: None Reported - Past Family History Mother Family Medical History: No Reported History Father Brother(s) Family Medical History: Cancer Additional Family Medical History / Comment(s): bladder Medications and Allergies Home Medications Medication Instructions Recorded Confirmed Type No Known Home Medications 05/27/21 05/27/21 History Allergies Allergy/AdvReac Type Severity Reaction Status Date / Time codeine phosphate Allergy Mild Itching Verified 05/27/21 14:13 [From Tylenol-Codeine #3] lorazepam [From Ativan] Allergy agitation Verified 05/27/21 14:13 and doesn't remember tramadol AdvReac paranoid Verified 05/27/21 14:13 Physical Exam Vitals: Vital Signs Temp Pulse Pulse Resp BP BP Pulse Ox 05/28/21 08:20 96.8 F L 79 16 120/76 98 05/28/21 08:00 16 05/28/21 03:49 97.9 F 64 16 95/54 96 05/28/21 01:42 83 05/27/21 23:19 98.4 F 83 18 113/69 97 05/27/21 22:04 84 05/27/21 21:42 98.1 F 84 16 126/75 95 05/27/21 19:11 80 18 117/70 96 05/27/21 15:44 83 18 118/78 95 05/27/21 12:48 98.2 F 83 18 123/88 100 Intake and Output 05/27/21 05/28/21 05/28/21 22:59 06:59 14:59 Intake Total 250 Balance 250 Intake: Oral 250 Other: Voiding Method Toilet Toilet Toilet # Voids 1 Weight 117.934 kg Head normocephalic Neck supple Lungs clear to auscultation bilaterally no wheezing or crackles Heart regular rate and rhythm S1-S2, no rub or gallop Abdomen is soft nontender nondistended positive bowel sounds no hepatosplenomegaly Extremities no edema Neuro alert and orientated to 3 Results CBC & Chem 7: 05/27/21 14:05 05/27/21 14:05 Labs: Abnormal Lab Results - Last 24 Hours (Table) 05/27/21 05/27/21 05/27/21 Range/Units 14:05 14:05 14:05 WBC 13.7 H (3.8-10.6) k/uL Neutrophils # 10.8 H (1.3-7.7) k/uL Carbon Dioxide 19 L (22-30) mmol/L Glucose 121 H (74-99) mg/dL Plasma Lactic Acid Melo 5.4 H* (0.7-2.0) mmol/L AST 69 H (14-36) U/L ALT 35 H (4-34) U/L Urine Protein (Negative) Urine Ketones (Negative) 05/27/21 Range/Units 15:39 WBC (3.8-10.6) k/uL Neutrophils # (1.3-7.7) k/uL Carbon Dioxide (22-30) mmol/L Glucose (74-99) mg/dL Plasma Lactic Acid Melo (0.7-2.0) mmol/L AST (14-36) U/L ALT (4-34) U/L Urine Protein Trace H (Negative) Urine Ketones 1+ H (Negative) Thrombosis Risk Factor Assmnt - Choose All That Apply Any of the Below Risk Factors Present?: No Other Risk Factors: No Other congenital or acquired thrombophilia - If yes, enter type in comment: No Thrombosis Risk Factor Assessment Level: Very Low Risk Assessment and Plan Assessment: 1. Seizure. Patient has been started on Keppra. Neurology services consulted 2. History of seizures. Patient apparently once was on medication but took herself off of it follows with neurology services outpatient Dr. Ramirez 3. Increased anxiety. Patient reports she has followed with outpatient psychiatry services is currently not on any medication. Will consult psychiatry services 4. History of GERD 5. History of cholecystectomy 6. Ex-smoker 7. Lactic acidosis. Initial lactic acid was elevated at 5. 9 repeat 0.9 no signs of infection. We'll continue to monitor DVT prophylaxis Lovenox. GI prophylaxis Protonix Patient is in seizure precautions Patient has been started on Keppra Neurology services consulted Psychiatry service is consulted Repeat labs ordered Time with Patient: Greater than 30 (Greater than 60% of the total time spent in counseling and coordination of care)
[2021-05-28 11:28] LABS: ALT 39 U/L (4-34); AST 80 U/L (14-36); African American GFR (CKD) >90 (>60 ml/min/1.73 sqM); Albumin 3.5 g/dL (3.5-5.0); Alkaline Phosphatase 54 U/L (38-126); Anion Gap 5 mmol/L; Blood Urea Nitrogen 9 mg/dL (7-17); Calcium 8.6 mg/dL (8.4-10.2); Carbon Dioxide 25 mmol/L (22-30); Chloride 108 mmol/L (98-107); Glucose 78 mg/dL (74-99); Non-African American GFR(CKD) >90 (>60 ml/min/1.73 sqM); Potassium 4.2 mmol/L (3.5-5.1); Sodium 138 mmol/L (137-145); Total Bilirubin 0.4 mg/dL (0.2-1.3); Total Protein 6.4 g/dL (6.3-8.2)
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
[2021-05-28] MEDS: ZIPRASIDONE 20 MG CAP PO SCH (17:25)
--- NOTE | 2021-05-28 18:03 | EEG ---
ELECTROENCEPHALOGRAM REPORT DATE OF SERVICE: 05/28/2021 PREAMBLE: This is a 35-year-old female with history of epilepsy. The patient had a breakthrough seizure. The patient is currently not on any seizure medication. EEG FINDINGS: This is a 21-channel digital EEG recorded with video competent, utilizing 10/20 international system with referential and bipolar montages. Background consists of well developed, well regulated, low to moderate amplitude activity in mixed frequencies of low-voltage fast frequency beta intermixed with some 8-9 hertz alpha activity. Background is posterior-dominant and reactive to eye opening and closing. 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 Intermittent focal slowing in theta and occasional delta range was seen in the left more than right temporal region. Occasional sharp waves were seen in the left mid temporal region. No electrographic seizures were recorded. Photic driving response was not seen. Some stage II sleep was seen with appearance of bilaterally symmetric theta and delta frequency, with some sleep spindles. EKG channel showed no arrhythmia. IMPRESSION: This is an abnormal EEG due to: 1. 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 2. Focal slowing and infrequent sharp waves seen in the left mid temporal region, suggestive of underlying structural abnormality with cortical irritability and tendency for seizures. 3. No electrographic seizures were recorded. 4. Presence of excessive low-voltage fast frequency beta suggests medication effect. MMPETEY / GILLESN: [id number] / SYEDA
[2021-05-28] MEDS: cloNIDine HCL 0.1 MG TAB PO SCH (19:29)
[2021-05-29 03:43] VITALS: RESP 18
[2021-05-29] MEDS: ZIPRASIDONE 20 MG CAP PO SCH (06:29)
[2021-05-29] MEDS ORDERED: PANTOPRAZOLE 40 MG TABLET PO SCH (07:30)
[2021-05-29 07:40] VITALS: TEMP 96.5
[2021-05-29 08:01] LABS: Basophils # (A) 0.1 k/uL (0-0.2); Basophils % (A) 1 %; Eosinophils # (A) 0.3 k/uL (0-0.7); Eosinophils % (A) 4 %; HGB 12.8 gm/dL (11.4-16.0); Hypochromasia Moderate; Lymphocytes # (A) 1.9 k/uL (1.0-4.8); Lymphocytes % (A) 26 %; MCH 27.7 pg (25.0-35.0); MCHC 31.2 g/dL (31.0-37.0); MCV 88.7 fL (80.0-100.0); Monocytes # (A) 0.4 k/uL (0-1.0); Monocytes % (A) 5 %; Neutrophils # (A) 4.6 k/uL (1.3-7.7); Neutrophils % (A) 61 %; Platelet Count 258 k/uL (150-450); RBC 4.63 m/uL (3.80-5.40); RDW 13.6 % (11.5-15.5); WBC 7.5 k/uL (3.8-10.6)
[2021-05-29 08:19] LABS: ALT 38 U/L (4-34); AST 55 U/L (14-36); African American GFR (CKD) >90 (>60 ml/min/1.73 sqM); Albumin 3.2 g/dL (3.5-5.0); Alkaline Phosphatase 54 U/L (38-126); Anion Gap 2 mmol/L; Blood Urea Nitrogen 11 mg/dL (7-17); Calcium 8.6 mg/dL (8.4-10.2); Carbon Dioxide 22 mmol/L (22-30); Chloride 113 mmol/L (98-107); Glucose 115 mg/dL (74-99); Non-African American GFR(CKD) >90 (>60 ml/min/1.73 sqM); Potassium 4.2 mmol/L (3.5-5.1); Sodium 137 mmol/L (137-145); Total Bilirubin 0.4 mg/dL (0.2-1.3); Total Protein 6.2 g/dL (6.3-8.2)
[2021-05-29] MEDS: cloNIDine HCL 0.1 MG TAB PO SCH (08:44)
[2021-05-29] MEDS ORDERED: ENOXAPARIN 40 MG/0.4 ML SYRINGE SQ SCH (09:00)
[2021-05-29 11:47] VITALS: BP 97/57; PULSE 81
--- NOTE | 2021-05-29 13:36 | P.PN ---
Progress Note - Text Progress Note Date: 05/29/21 Interval History: Patient was seen speaking on the phone with a friend in her room out of bed. Patient was agreeable to speak with television script writer in her room. Currently, the patient is not reporting any suicidal or homicidal ideation, intention, and/or plan. She denies any auditory or visual hallucinations. She reports no paranoia or other delusions. The patient reports that she feels a little drowsy when she takes the Geodon in the morning. However, the patient wishes to continue this medication at this time. She is currently looking for to discharge he is not reporting any significant issues regarding her mental health. She was encouraged to follow-up with her outpatient appointments for mental health. Mental Status Exam: General Appearance: Patient appears to be stated age is alert, directable, and cooperative. Good hygiene and grooming. Multiple tattoos. Behavior: Patient is calmly seated without any agitated behavior. Speech: Patient's speech is fluent and nonpressured. Spontaneous, normal rate and volume. Mood/Affect: Mood is happy, affect is congruent and euthymic and bright. Suicidality/Homicidality: Patient denies having any suicidal or homicidal ideation intent or plan. Perceptions: Patient denies any visual hallucinations and denies any auditory hallucinations Though content/process: There is no evidence of any delusional thought content and thought process is linear and goal-directed. Memory and concentration: AOX3, grossly intact for the purposes of this session Judgment and insight: Improving mildly Vital Signs Temp 96.5 F L 05/29/21 07:37 Pulse 81 05/29/21 11:46 Resp 18 05/29/21 11:46 BP 97/57 05/29/21 11:46 Pulse Ox 98 05/29/21 11:46 Intake & Output 05/28/21 05/29/21 05/29/21 18:59 06:59 18:59 Intake Total 120 480 Balance 120 480 Intake: Oral 120 480 Other: Voiding Method Toilet Toilet Toilet # Voids 1 Laboratory Results - Last 24 Hours 05/29/21 05/29/21 07:27 07:27 WBC 7.5 RBC 4.63 Hgb 12.8 Hct 41.0 MCV 88.7 MCH 27.7 MCHC 31.2 RDW 13.6 Plt Count 258 MPV 8.0 Neutrophils % 61 Lymphocytes % 26 Monocytes % 5 Eosinophils % 4 Basophils % 1 Neutrophils # 4.6 Lymphocytes # 1.9 Monocytes # 0.4 Eosinophils # 0.3 Basophils # 0.1 Hypochromasia Moderate Sodium 137 Potassium 4.2 Chloride 113 H Carbon Dioxide 22 Anion Gap 2 BUN 11 Creatinine 0.71 Est GFR (CKD-EPI)AfAm >90 Est GFR (CKD-EPI)NonAf >90 Glucose 115 H Calcium 8.6 Total Bilirubin 0.4 AST 55 H ALT 38 H Alkaline Phosphatase 54 Total Protein 6.2 L Albumin 3.2 L Assessment Bipolar 2 disorder Posttraumatic stress disorder Borderline personality disorder Seizure disorder Plan: -Continue your medical management -At this time patient DOES NOT meet criteria for inpatient psychiatric admission. The patient is not presenting any imminent risk of harm to self or others. She is not overtly psychotic or manic. Medications: Continue Geodon 20 mg by mouth twice a day with meals for mood stabilization Continue Catapres 0.1 mg by mouth twice a day for PTSD -The risks, benefits, and treatment alternatives of the medications were discussed with the patient great detail. The patient acknowledged understanding. -Psychiatry will sign off at this time. Thank you for this consult. Please call us for any questions or concerns.
--- NOTE | 2021-05-29 14:11 | P.DS ---
Providers Date of admission: 05/29/21 08:23 Expected date of discharge: 05/29/21 Attending physician: Damien Simpson Consults: 05/27/21 16:53 Consult Physician Routine Consulting Provider: Walter Eid Consult Reason/Comments: Seizure Do you want consulting provider notified?: Yes 05/28/21 11:20 Consult Physician Routine Consulting Provider: Vincent Berrios Consult Reason/Comments: Paranoid thoughts anxiety Do you want consulting provider notified?: Yes Primary care physician[place] [facility] [place] Diagnosis on discharge: 1. Seizure. Patient has been started on Keppra. Neurology services consulted 2. History of seizures. Patient apparently once was on medication but took herself off of it follows with neurology services outpatient Dr. Ramirez 3. Increased anxiety. Patient reports she has followed with outpatient psychiatry services is currently not on any medication. Will consult psychiatry services 4. History of GERD 5. History of cholecystectomy 6. Ex-smoker 7. Lactic acidosis. Initial lactic acid was elevated at 5. 9 repeat 0.9 no signs of infection. We'll continue to monitor 8. Per psychiatry patient has: Bipolar 2 disorder Posttraumatic stress disorder Borderline personality disorder Hospital course: This is a 35-year-old female patient who presented to the ER initially with concerns of fatigue and muscle weakness with concerns of possible COVID-19 infection. apparently during chest x-ray patient experienced a grand mal seizure. Patient does report that she has a history of seizures patient reports her last seizure was in 2013. Patient reports that she was was on medication but took herself off that medication. Patient does follow with neurologist Dr. Cobian. Additional medical history includes GERD, migraines, previous brain surgery and eye surgery. Patient also has a history of anxiety bipolar depression which she follows with outpatient psychiatry services. Patient does reports she's had increased anxiety and paranoid thoughts requesting for psych consult not currently on any medication. Patient denies any suicidal thoughts at this time. COVID-19 negative. 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 Patient has been started on Keppra. Neurology services have been consulted. Patient denies any alcohol use or drug use. Patient denies any change in medications. Initial lactic acid was elevated at 5. 4 repeat lactic 0.9 this is likely secondary from seizure activity infection. Drug screen negative. Patient is currently resting complain bed. Seizure cautions in place. Awaiting neurology consult. Psychiatry services also consulted. Patient denies chest pain or shortness breath. Patient denies nausea vomiting or diarrhea. Patient denies any urinary burning or frequency. On 05/29/2021 patient was seen and examined on the medical floor she is alert and oriented in no distress no new episodes of seizure she was cleared for discharge by neurology with recommendation to take Keppra 750 mg bid, she was also seen by psychiatry and their recommendation are to start patient on Geodon and catapres, patient is stable and will be discharged to home today, follow up in the office in 1-2 days, patient made aware of [place] law prohibiting driving for 6 months after having a seizure. Patient Condition at Discharge: Stable Plan - Discharge Summary Discharge Rx Participant: No New Discharge Prescriptions: New cloNIDine HCL [Catapres] 0.1 mg PO BID tab Ziprasidone [Geodon] 20 mg PO BID-W/MEALS cap levETIRAcetam [Keppra] 750 mg PO Q12HR tab Discharge Medication List Ziprasidone [Geodon] 20 mg PO BID-W/MEALS cap 05/29/21 [Rx] cloNIDine HCL [Catapres] 0.1 mg PO BID tab 05/29/21 [Rx] levETIRAcetam [Keppra] 750 mg PO Q12HR tab 05/29/21 [Rx] Follow up Appointment(s)/Referral(s): Damien Simpson MD [Primary Care Provider] - 1-2 days
== END 2021-05-29 15:43 | disposition home or self-care (01) | DRG 101 ==
LOC: EC 12:44 → 3SCARD 16:52 → OBSVTOIN 05-29 08:23
PROVIDERS: ADMIT Internal Medicine; ATTEND Internal Medicine
DX: G40.219 Localization-related (focal) (partial) symptomatic epilepsy and epileptic syndromes with complex partial seizures, intractable, without status epilepticus (principal); E87.2 Acidosis; F31.81 Bipolar II disorder; S01.552A Open bite of oral cavity, initial encounter; Z20.822 Contact with and (suspected) exposure to COVID-19; D72.829 Elevated white blood cell count, unspecified; F43.10 Post-traumatic stress disorder, unspecified; K21.9 Gastro-esophageal reflux disease without esophagitis; G43.909 Migraine, unspecified, not intractable, without status migrainosus; F60.3 Borderline personality disorder; Z86.73 Personal history of transient ischemic attack (TIA), and cerebral infarction without residual deficits; Z87.891 Personal history of nicotine dependence; Z90.49 Acquired absence of other specified parts of digestive tract; Z88.5 Allergy status to narcotic agent; Z88.8 Allergy status to other drugs, medicaments and biological substances; Z86.14 Personal history of Methicillin resistant Staphylococcus aureus infection; X58.XXXA Exposure to other specified factors, initial encounter
CPT/HCPCS: 36415; 70450; 71046; 80053; 80306; 81003; 81025; 83605; 83735; 84484; 85025; 85610; 85730; 87635; 93005; 95819; 96374; 99285

== ENCOUNTER 2021-07-03 22:35 | Emergency (ER) | payer OTHER ==
[2021-07-03 23:31] VITALS: TEMP 98.3
--- NOTE | 2021-07-03 23:48 | XR ---
EXAMINATION TYPE: XR chest 2V DATE OF EXAM: 07/03/2021 COMPARISON: 05/27/2021 HISTORY: Chest pain TECHNIQUE: 2 views FINDINGS: Heart and mediastinum are normal. Lungs are clear. Diaphragm is normal. Bony thorax appears normal. IMPRESSION: Normal chest. No change.
[2021-07-04 00:16] LABS: Basophils # (A) 0.1 k/uL (0-0.2); Basophils % (A) 1 %; Eosinophils # (A) 0.2 k/uL (0-0.7); Eosinophils % (A) 2 %; HCT 40.1 % (34.0-46.0); HGB 13.2 gm/dL (11.4-16.0); Lymphocytes % (A) 17 %; MCHC 32.9 g/dL (31.0-37.0); Mean Platelet Volume 7.9; Monocytes # (A) 0.5 k/uL (0-1.0); Monocytes % (A) 4 %; Neutrophils # (A) 8.7 k/uL (1.3-7.7); Neutrophils % (A) 75 %; Platelet Count 294 k/uL (150-450); RBC 4.89 m/uL (3.80-5.40); RDW 13.6 % (11.5-15.5); WBC 11.7 k/uL (3.8-10.6)
[2021-07-04 00:26] LABS: ALT 25 U/L (4-34); AST 23 U/L (14-36); African American GFR (CKD) >90 (>60 ml/min/1.73 sqM); Alkaline Phosphatase 100 U/L (38-126); Anion Gap 8 mmol/L; Blood Urea Nitrogen 13 mg/dL (7-17); Calcium 9.2 mg/dL (8.4-10.2); Carbon Dioxide 24 mmol/L (22-30); Chloride 106 mmol/L (98-107); Glucose 106 mg/dL (74-99); Non-African American GFR(CKD) >90 (>60 ml/min/1.73 sqM); Potassium 4.1 mmol/L (3.5-5.1); Sodium 138 mmol/L (137-145); Total Bilirubin 0.3 mg/dL (0.2-1.3)
[2021-07-04 00:28] LABS: INR 0.9 (<1.2); Partial Thromboplastin Time 24.6 sec (22.0-30.0); Prothrombin Time 9.6 sec (9.0-12.0)
--- NOTE | 2021-07-04 01:46 | ED ---
General Adult HPI - General Chief complaint: Chest Pain Stated complaint: Chest Pain, Left Arm Numbness Time Seen by Provider: 07/04/21 01:10 Source: patient, RN notes reviewed Mode of arrival: wheelchair Limitations: no limitations - History of Present Illness Initial comments: 35-year-old female presents to the emergency department for evaluation of upper chest pain, onset 1 hour prior to arrival. Patient states the pain began while she was. Then this evening. States it extended to her left arm and across her chest to the right shoulder. Patient states she experienced what she describes as a panic attack after the onset of symptoms. Reports shortness of breath and anxiety with her panic attack. States the pain improved upon arrival has r esolved at this time. It was not accompanied by any nausea or vomiting. Patient denies fever, chills, dizziness, cough, congestion, abdominal pain, nausea, vomiting, diarrhea, or dysuria. - Related Data Previous Rx's Medication Instructions Recorded Ziprasidone [Geodon] 20 mg PO BID-W/MEALS cap 05/29/21 cloNIDine HCL [Catapres] 0.1 mg PO BID tab 05/29/21 levETIRAcetam [Keppra] 750 mg PO Q12HR tab 05/29/21 Allergies Allergy/AdvReac Type Severity Reaction Status Date / Time codeine phosphate Allergy Mild Itching Verified 07/03/21 23:30 [From Tylenol-Codeine #3] lorazepam [From Ativan] Allergy agitation Verified 07/03/21 23:30 and doesn't remember tramadol AdvReac paranoid Verified 07/03/21 23:30 Review of Systems ROS Statement: Those systems with pertinent positive or pertinent negative responses have been documented in the HPI. ROS Other: All systems not noted in ROS Statement are negative. Past Medical History Past Medical History: GERD/Reflux, Seizure Disorder Additional Past Medical History / Comment(s): Migraines History of Any Multi-Drug Resistant Organisms: None Reported, MRSA Date of last positivie culture/infection: 2012 MDRO Source:: stomach wound Past Surgical History: Adenoidectomy, Cholecystectomy, Orthopedic Surgery Additional Past Surgical History / Comment(s): Brain surgery for history of seizures Past Anesthesia/Blood Transfusion Reactions: No Reported Reaction Additional Past Anesthesia/Blood Transfusion Reaction / Comment(s): no hx blood transfusion Past Psychological History: Anxiety, Bipolar, Depression Smoking Status: Former smoker Past Alcohol Use History: None Reported Past Drug Use History: None Reported - Past Family History Mother Family Medical History: No Reported History Father Brother(s) Family Medical History: Cancer Additional Family Medical History / Comment(s): bladder General Exam Limitations: no limitations (Well-developed, well-nourished female in no acute distress. Initial temperature 98.3, pulse 81, respirations 20, blood pressure 115/78, pulse ox 99% on room air.) General appearance: alert, in no apparent distress Respiratory exam: Present: normal lung sounds bilaterally. Absent: respiratory distress, wheezes, rales, rhonchi, stridor, chest wall tenderness Cardiovascular Exam: Present: regular rate, normal rhythm, normal heart sounds. Absent: systolic murmur, diastolic murmur, rubs, gallop, clicks GI/Abdominal exam: Present: soft, normal bowel sounds. Absent: distended, tenderness, guarding, rebound, rigid Neurological exam: Present: alert, oriented X3, CN II-XII intact Psychiatric exam: Present: normal affect, normal mood Skin exam: Present: warm, dry, intact, normal color. Absent: rash Course Vital Signs 07/03/21 07/04/21 07/04/21 23:29 01:15 03:35 Temperature 98.3 F Pulse Rate 81 79 88 Respiratory 20 19 16 Rate Blood Pressure 113/78 123/75 121/76 O2 Sat by Pulse 99 98 99 Oximetry Medical Decision Making - Medical Decision Making 35-year-old female with a past medical history of seizures presents to the emergency department for evaluation of chest pain. Upon exam, patient is well- appearing and in no acute distress. States her chest pain has resolved at this time. Reports pain began in the left upper chest and spread across to the right shoulder and down the left arm. Pain was not accompanied by any other symptoms other than anxiety and a sense of panic. Patient states the pain resolved on its own, though has had intermittent episodes since. EKG was obtained showing sinus rhythm with no ectopy. Chest x-ray was negative. Laboratory studies were unremarkable. Repeat troponin was negative. Findings were discussed with patient. Discussed that this was likely not cardiac in nature, however could be related to her baseline level of anxiety or musculoskeletal in nature. Patient was advised to follow-up with her PCP for a recheck. Strict return parameters were discussed in detail. Patient verbalizes understanding and agrees with this plan. This patient's care was discussed with my attending, Dr. White. - Lab Data Result diagrams: 07/03/21 23:58 07/03/21 23:58 Lab Results 07/03/21 07/03/21 07/03/21 Range/Units 23:58 23:58 23:58 WBC 11.7 H (3.8-10.6) k/uL RBC 4.89 (3.80-5.40) m/uL Hgb 13.2 (11.4-16.0) gm/dL Hct 40.1 (34.0-46.0) % MCV 82.0 D (80.0-100.0) fL MCH 27.0 (25.0-35.0) pg MCHC 32.9 (31.0-37.0) g/dL RDW 13.6 (11.5-15.5) % Plt Count 294 (150-450) k/uL MPV 7.9 Neutrophils % 75 % Lymphocytes % 17 % Monocytes % 4 % Eosinophils % 2 % Basophils % 1 % Neutrophils # 8.7 H (1.3-7.7) k/uL Lymphocytes # 2.0 (1.0-4.8) k/uL Monocytes # 0.5 (0-1.0) k/uL Eosinophils # 0.2 (0-0.7) k/uL Basophils # 0.1 (0-0.2) k/uL PT 9.6 (9.0-12.0) sec INR 0.9 (<1.2) APTT 24.6 (22.0-30.0) sec Sodium 138 (137-145) mmol/L Potassium 4.1 (3.5-5.1) mmol/L Chloride 106 (98-107) mmol/L Carbon Dioxide 24 (22-30) mmol/L Anion Gap 8 mmol/L BUN 13 (7-17) mg/dL Creatinine 0.73 (0.52-1.04) mg/dL Est GFR (CKD-EPI)AfAm >90 (>60 ml/min/1.73 sqM) Est GFR (CKD-EPI)NonAf >90 (>60 ml/min/1.73 sqM) Glucose 106 H (74-99) mg/dL Calcium 9.2 (8.4-10.2) mg/dL Total Bilirubin 0.3 (0.2-1.3) mg/dL AST 23 (14-36) U/L ALT 25 (4-34) U/L Alkaline Phosphatase 100 (38-126) U/L Troponin I (0.000-0.034) ng/mL Total Protein 7.0 (6.3-8.2) g/dL Albumin 4.0 (3.5-5.0) g/dL 07/03/21 07/04/21 Range/Units 23:58 02:03 WBC (3.8-10.6) k/uL RBC (3.80-5.40) m/uL Hgb (11.4-16.0) gm/dL Hct (34.0-46.0) % MCV (80.0-100.0) fL MCH (25.0-35.0) pg MCHC (31.0-37.0) g/dL RDW (11.5-15.5) % Plt Count (150-450) k/uL MPV Neutrophils % % Lymphocytes % % Monocytes % % Eosinophils % % Basophils % % Neutrophils # (1.3-7.7) k/uL Lymphocytes # (1.0-4.8) k/uL Monocytes # (0-1.0) k/uL Eosinophils # (0-0.7) k/uL Basophils # (0-0.2) k/uL PT (9.0-12.0) sec INR (<1.2) APTT (22.0-30.0) sec Sodium (137-145) mmol/L Potassium (3.5-5.1) mmol/L Chloride (98-107) mmol/L Carbon Dioxide (22-30) mmol/L Anion Gap mmol/L BUN (7-17) mg/dL Creatinine (0.52-1.04) mg/dL Est GFR (CKD-EPI)AfAm (>60 ml/min/1.73 sqM) Est GFR (CKD-EPI)NonAf (>60 ml/min/1.73 sqM) Glucose (74-99) mg/dL Calcium (8.4-10.2) mg/dL Total Bilirubin (0.2-1.3) mg/dL AST (14-36) U/L ALT (4-34) U/L Alkaline Phosphatase (38-126) U/L Troponin I <0.012 <0.012 (0.000-0.034) ng/mL Total Protein (6.3-8.2) g/dL Albumin (3.5-5.0) g/dL - EKG Data EKG shows normal: sinus rhythm Rate: normal EKG Comments: EKG was obtained at 2252 showing sinus rhythm. Ventricular rate 78, WA interval 179, QRS duration 91, QT/QTC 361/394. Interpretation borderline ECG - Radiology Data Radiology results: report reviewed, image reviewed Two-view chest x-ray was obtained. Report was reviewed in its entirety. Impression per Dr. Lauren as normal chest. No change. Disposition Clinical Impression: Non-cardiac chest pain Disposition: HOME SELF-CARE Condition: Stable Instructions (If sedation given, give patient instructions): Noncardiac Chest Pain (ED) Additional Instructions: Follow up with your PCP for a recheck; call in the morning to schedule an appointment. DO your best to manage your stress and anxiety. Continue taking your home medications as prescribed. Return to the emergency department if any new, worsening, or concerning symptoms. Is patient prescribed a controlled substance at d/c from ED?: No Referrals: Damien Simpson MD [Primary Care Provider] - 1-2 days Time of Disposition: 03:16
[2021-07-04 03:37] VITALS: BP 121/76; PULSE 88; RESP 16
== END 2021-07-04 04:08 | disposition home or self-care (01) ==
LOC: EC 22:35
DX: R07.89 Other chest pain (principal); K21.9 Gastro-esophageal reflux disease without esophagitis; G40.909 Epilepsy, unspecified, not intractable, without status epilepticus; F31.9 Bipolar disorder, unspecified; F41.9 Anxiety disorder, unspecified; Z87.891 Personal history of nicotine dependence; Z79.899 Other long term (current) drug therapy
CPT/HCPCS: 36415; 71046; 80053; 84484; 85025; 85610; 85730; 93005; 99285

== ENCOUNTER 2021-10-17 07:24 | Emergency (ER) | payer OTHER ==
[2021-10-17] MEDS ORDERED: diphenhydrAMINE 50 MG/ML 1 ML VIAL IVP STA (07:39)
[2021-10-17] MEDS ORDERED: KETOROLAC 15 MG/ML 1 ML VIAL IVP STA (07:39)
[2021-10-17] MEDS ORDERED: SODIUM CHLORIDE 0.9% 500 ML 500 ML IV ONE (07:40)
--- NOTE | 2021-10-17 07:42 | ED ---
General Adult HPI - General Chief complaint: Headache Stated complaint: headache Time Seen by Provider: 10/17/21 07:33 Source: patient, RN notes reviewed Mode of arrival: ambulatory Limitations: no limitations - History of Present Illness Initial comments: This is a 36-year-old female presents emergency Department chief complaint of migraine headache. Patient has frequent chronic headaches. Patient states this is very typical for normal headache but states is just not alleviating. She states is not severe. She states she feels pain, pressure behind her left eye which is normal headache. No visual disturbances no pain with ocular movement. Denies fevers chills vomiting diarrhea constipation. Patient has an neck pain neck stiffness she does have slight nausea she states she has sensitivity to sound. Patient has tried all medications that she has at home with minimal relief. - Related Data Previous Rx's Medication Instructions Recorded Ziprasidone [Geodon] 20 mg PO BID-W/MEALS cap 05/29/21 cloNIDine HCL [Catapres] 0.1 mg PO BID tab 05/29/21 levETIRAcetam [Keppra] 750 mg PO Q12HR tab 05/29/21 Allergies Allergy/AdvReac Type Severity Reaction Status Date / Time codeine phosphate Allergy Mild Itching Verified 10/17/21 07:32 [From Tylenol-Codeine #3] lorazepam [From Ativan] Allergy agitation Verified 10/17/21 07:32 and doesn't remember tramadol AdvReac paranoid Verified 10/17/21 07:32 Review of Systems ROS Statement: Those systems with pertinent positive or pertinent negative responses have been documented in the HPI. ROS Other: All systems not noted in ROS Statement are negative. Past Medical History Past Medical History: GERD/Reflux, Seizure Disorder Additional Past Medical History / Comment(s): Migraines History of Any Multi-Drug Resistant Organisms: None Reported, MRSA Date of last positivie culture/infection: 2012 MDRO Source:: stomach wound Past Surgical History: Adenoidectomy, Cholecystectomy, Orthopedic Surgery Additional Past Surgical History / Comment(s): Brain surgery for history of seizures Past Anesthesia/Blood Transfusion Reactions: No Reported Reaction Additional Past Anesthesia/Blood Transfusion Reaction / Comment(s): no hx blood transfusion Past Psychological History: Anxiety, Bipolar, Depression Smoking Status: Former smoker Past Alcohol Use History: None Reported Past Drug Use History: None Reported - Past Family History Mother Family Medical History: No Reported History Father Brother(s) Family Medical History: Cancer Additional Family Medical History / Comment(s): bladder General Exam Limitations: no limitations General appearance: alert, in no apparent distress Head exam: Present: atraumatic, normocephalic, normal inspection Eye exam: Present: normal appearance, PERRL, EOMI. Absent: scleral icterus, conjunctival injection, periorbital swelling ENT exam: Present: normal exam, normal oropharynx, mucous membranes moist Neck exam: Present: normal inspection, full ROM. Absent: tenderness, meningismus, lymphadenopathy Respiratory exam: Present: normal lung sounds bilaterally. Absent: respiratory distress, wheezes, rales, rhonchi, stridor Cardiovascular Exam: Present: regular rate, normal rhythm, normal heart sounds. Absent: systolic murmur, diastolic murmur, rubs, gallop, clicks Extremities exam: Present: full ROM, other (Upper and lower extremity strength equal bilaterally). Absent: tenderness Back exam: Present: full ROM. Absent: tenderness, paraspinal tenderness, vertebral tenderness Neurological exam: Present: alert, oriented X3, CN II-XII intact, reflexes normal, other (Finger to nose intact). Absent: motor sensory deficit Skin exam: Present: warm, dry, intact, normal color. Absent: rash Course Vital Signs 10/17/21 10/17/21 07:28 10:00 Temperature 97.4 F L 97.9 F Pulse Rate 71 69 Respiratory 18 18 Rate Blood Pressure 111/74 101/60 O2 Sat by Pulse 98 99 Oximetry Medical Decision Making - Medical Decision Making patient reevaluated after medications that she feels greatly improved. Patient discharged in stable condition return parameters were discussed. Disposition Clinical Impression: Migraine Disposition: HOME SELF-CARE Condition: Stable Instructions (If sedation given, give patient instructions): Acute Headache (ED) Additional Instructions: Please return to the Emergency Department if symptoms worsen or any other concerns. Is patient prescribed a controlled substance at d/c from ED?: No Referrals: Damien Simpson MD [Primary Care Provider] - 1-2 days Time of Disposition: 10:16
[2021-10-17 10:57] VITALS: BP 104/68; PULSE 75; RESP 20; TEMP 98
== END 2021-10-17 11:00 | disposition home or self-care (01) ==
LOC: EC 07:24
DX: G43.909 Migraine, unspecified, not intractable, without status migrainosus (principal); Z87.891 Personal history of nicotine dependence; Z88.5 Allergy status to narcotic agent; Z88.8 Allergy status to other drugs, medicaments and biological substances; Z88.6 Allergy status to analgesic agent
CPT/HCPCS: 99283; 96374; 96375; J1200; J1885; J1790

== ENCOUNTER → 2023-03-03 | Outpatient (CLI) | payer OTHER ==
[2023-03-04 08:10] LABS: Lamotrigine (Lamictal) 6.2 ug/mL (2.0-15.0)
== END | disposition home or self-care (01) ==
LOC: LABWHC1 08:19
PROVIDERS: ATTEND Psychiatry & Neurology Neurology
DX: G40.109 Localization-related (focal) (partial) symptomatic epilepsy and epileptic syndromes with simple partial seizures, not intractable, without status epilepticus (principal)
CPT/HCPCS: 36415; 80175; 80177

== ENCOUNTER → 2024-11-11 | Outpatient (CLI) | payer OTHER | END | disposition home or self-care (01) | LOC: LABWHC1 07:48 | PROVIDERS: ATTEND Psychiatry & Neurology Neurology | DX: G40.109 Localization-related (focal) (partial) symptomatic epilepsy and epileptic syndromes with simple partial seizures, not intractable, without status epilepticus (principal) | CPT/HCPCS: 36415; 80175 ==